=== PATIENT | male | born 1930 | race Caucasian/White ===

== ENCOUNTER 2021-04-09 15:49 | Inpatient (IN) | payer OTHER, MEDICARE ==
[~2021-04-09] VITALS: Ht 185.4 cm; Wt 75.7 kg
[~2021-04-09 15:49] MED LIST: AMLO-187 PO; HYDR-2145 PO; LISI20TA18 PO; METF500T16 PO; PRAV20TA2 PO
--- NOTE | 2021-04-09 16:28 | PHYS DOC ---
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 lung (MICHELL SINHA SUPERINTENDENT METERS) Smoking Status: Current Every Day Smoker Alcohol Use: Occasionally Drug Use: None (MICHELL SINHA SUPERINTENDENT METERS) General Adult EDM: Chief Complaint: MECHANICAL FALL HPI: HPI: Patient is a 89 year old male who presents with approximately 1900 last night he was out working in the yard and fell. He states he does not know why he fell but he did not lose consciousness or hit his head. He states that he was trying to grab things to get back up but was unable to. He states he was yelling for help for 3 hours but nobody hurt himself he just laid there. Patient was playing outside all night long and all day today. He has bilateral abrasions on his knees, and old pressure ulcer on lateral left ankle which she states has been there, bilateral small abrasions on his hands and fingers. He denies any blood thinners. Patient denies shortness of breath, chest pain, abdominal pain, nausea, vomiting, diarrhea, dizziness, headache, back pain, neck pain, fever, cough. He has a history of smoking, COPD, diabetes, hypertension, high cholesterol, rotator cuff surgery, carpal tunnel surgery. He has had both of his Covid vaccines. Denies any pain. (MICHELL SINHA SUPERINTENDENT METERS) Review of Systems: Review of Systems: Constitutional: Denies fever or chills. [] Eyes: Denies change in visual acuity. [] HENT: Denies nasal congestion or sore throat. [] Respiratory: Denies cough or shortness of breath. [] Cardiovascular: Denies chest pain or edema. [] GI: Denies abdominal pain, nausea, vomiting, bloody stools or diarrhea. [] : Denies dysuria. [] Musculoskeletal: Denies back pain or + left lateral ankle joint pain. + Fall [] Integument: Denies rash. + Abrasions [] Neurologic: Denies headache, focal weakness or sensory changes. [] Endocrine: Denies polyuria or polydipsia. [] Lymphatic: Denies swollen glands. [] Psychiatric: Denies depression or anxiety. [] (MICHELL SINHA APRN) Heart Score: C/O Chest Pain: No Risk Factors: Risk Factors: DM, Current or recent (<one month) smoker, HTN, HLP, family history of CAD, obesity. Risk Scores: Score 0 - 3: 2.5% MACE over next 6 weeks - Discharge Home Score 4 - 6: 20.3% MACE over next 6 weeks - Admit for Clinical Observation Score 7 - 10: 72.7% MACE over next 6 weeks - Early Invasive Strategies (MICHELL SINHA APRN) Allergies: Allergies: Allergies Coded Allergies Type Severity Reaction Last Updated Verified No Known Drug Allergies 04/09/21 No (MICHELL SINHA APRN) Physical Exam: PE: Constitutional: Well developed, well nourished, no acute distress, non-toxic oscar earance. [] HENT: Normocephalic, atraumatic, bilateral external ears normal, oropharynx moist, no oral exudates, nose normal. [] Eyes: PERRLA, EOMI, conjunctiva normal, no discharge. [] Neck: Normal range of motion, no tenderness, supple, no stridor. [] Cardiovascular:Heart rate regular rhythm, no murmur [] Lungs & Thorax: Bilateral breath sounds clear to auscultation [] Abdomen: Bowel sounds normal, soft, no tenderness, no masses, no pulsatile masses. [] Skin: Warm, dry, no erythema, no rash. Multiple abrasions. Bilateral knees, hands and fingers, elbows. [] Back: No tenderness, no CVA tenderness. [] Extremities: No tenderness, no cyanosis, no clubbing, ROM intact, bilateral lower 2+ edema. [] Neurologic: Alert and oriented X 3, normal motor function, normal sensory function, no focal deficits noted. [] Psychologic: Affect normal, judgement normal, mood normal. [] ([facility]) Current Patient Data: Vital Signs: Vital Signs Date Time Temp Pulse Resp B/P (MAP) Pulse Ox O2 Delivery O2 Flow Rate FiO2 04/09/21 16:07 80 16 127/82 98 Room Air ([facility]) EKG: EK read by Dr. Lazo as irregular A. fib rhythm but no STEMI. (MICHELL SINHA APRN) Radiology/Procedures: Radiology/Procedures: [] Impression: [facility] [address] [place] [address] IMAGING REPORT Signed PATIENT: NITA AVILA ACCOUNT: [id number] : 1930 LOCATION: ER AGE: 89 SEX: M EXAM STATUS: REG ER ORD. PHYSICIAN: MICHELL SINHA APRN REASON: FALL PROCEDURE: CT THORACIC SPINE WO CONTRAST Exam: CT head, cervical spine, thoracic spine and lumbar spine without contrast INDICATION: Fall TECHNIQUE: Sequential axial images through the head, cervical spine, thoracic spine and lumbar spine were obtained without the administration of IV contrast. Exposure: One or more of the following in the visualized dose reduction techniques were utilized for this examination: 1. Automated exposure control 2. Adjustment of the MA and/or KV according to patient size 3. Use of iterative of reconstructive technique Comparisons: None FINDINGS: Head: No focal parenchymal lesion or hemorrhage is identified. There is no midline shift or sulcal effacement. Patchy evidence in the periventricular white matter. No acute vascular territory infarction is identified. Stein-white distinction is preserved. The ventricular system is within normal limits without compression hydrocephalus. The basal cisterns are well maintained. Extra cranial soft tissue scalp contusion overlying the right posterior parietal region and right occipital region. The visualized portions of the paranasal sinuses and mastoid air cells are well-pneumatized. No acute fractures. Cervical spine: Vertebral body heights and alignment are well-maintained. Fracture to the cervical spine is not identified. Multilevel spondylotic change in cervical spine. There is degenerative disc disease greatest at C5-C6. Mild bilateral facet arthropathy is noted throughout cervical spine. Visualized paraspinal soft tissues are unremarkable. Thoracic spine: There is mild height loss at the superior endplate of T1 and T4. Fracture to the thoracic spine is not identified. No significant spondylotic change identified in the thoracic spine. Visualized paraspinal soft tissues are unremarkable. Lumbar spine: Vertebral body heights and alignment are well-maintained. Fracture to the lumbar spine is is not identified. There is diffuse severe osteopenia sacrum is not well evaluated Multilevel spondylotic change in cervical spine with degenerative disc disease greatest at L2-L3, L3-L4 and L5-S1 diffuse bilateral facet arthropathy is noted in the lumbar spine. Visualized paraspinal soft tissues are unremarkable. IMPRESSION: 1. Mild height loss involving superior endplate of T1 and T4 is age indeterminate. Correlate with point tenderness. 2. No acute intracranial abnormality. 3. Negative CT C-spine for acute traumatic injury. 4. Evaluation of the sacrum is markedly limited secondary to extensive severe osteopenia which limits the evaluation. Otherwise, no acute fracture identified at the lumbar spine. Electronically signed by: Haroon Rich MD (04/09/2021 5:16 PM) [facility] DICTATED and SIGNED BY: HAROON RICH MD DATE: 04/09/[id number] [id number] [place], [place] [id number] IMAGING REPORT Signed PATIENT: NITA AVILA ACCOUNT: [id number] : 1930 LOCATION: ER AGE: 89 SEX: M EXAM STATUS: REG ER ORD. PHYSICIAN: MICHELL SINHA APRN REASON: FALL PROCEDURE: PORTABLE CHEST 1V Single view chest dated 04/09/2021 5:14 PM: COMPARISON: None Clinical Indication: Pain after fall. Findings: Single upright portable exam of the chest was performed. Heart and mediastinal contours are stable. Lungs are hyperinflated but otherwise clear. No consolidation or pleural effusion. No pneumothorax. IMPRESSION: 1. No acute radiographic abnormality. 2. Hyperinflation suggesting COPD. Electronically signed by: Jean-Pierre Goldberg MD (04/09/2021 5:15 PM) [facility] DICTATED and SIGNED BY: JEAN-PIERRE GOLDBERG MD DATE: 04/09/21 [id number] [facility] [address] [place] [address] IMAGING REPORT Signed PATIENT: NITA AVILA ACCOUNT: [id number] : 1930 LOCATION: ER AGE: 89 SEX: M EXAM STATUS: REG ER ORD. PHYSICIAN: MICHELL SINHA APRN REASON: FALL PROCEDURE: ANKLE LEFT 3V Left ankle 3 views: Reason for examination: Fell. No acute fracture or dislocation is seen. The bone density is normal. No abnormal periosteal reaction is seen. Joint spaces are maintained. Some arteriosclerotic vascular calcification is present. IMPRESSION: No acute abnormality evident at the left ankle. Electronically signed by: Lexi Wood MD (04/09/2021 5:16 PM) [facility] DICTATED and SIGNED BY: LEXI WOOD MD DATE: 04/09/[id number] 0 [facility] [address] [place] [address] IMAGING REPORT Signed PATIENT: NITA AVILA ACCOUNT: [id number] : 1930 LOCATION: ER AGE: 89 SEX: M EXAM STATUS: REG ER ORD. PHYSICIAN: MICHELL SINHA APRN REASON: FALL PROCEDURE: HIP BILATERAL WITH PELVIS Single view pelvis and single view bilateral hip dated 04/09/2021. No comparison available. Clinical data indication: Pain after fall. FINDINGS: AP view pelvis shows normal bony alignment. No displaced fracture. The pelvic ring is intact. Mild degenerative change of the bilateral hip joint and bilateral SI joint with spondylotic changes of lower lumbar spine. Single view bilateral hips show normal bony alignment. No displaced fracture. No periostitis or bone destruction. IMPRESSION: 1. No evidence of displaced fracture. If there is persistent clinical concern for occult fracture or insufficiency fracture, MRI could better evaluate. 2. Mild degenerative changes. Electronically signed by: Jean-Pierre Goldberg MD (04/09/2021 5:16 PM) [facility] DICTATED and SIGNED BY: JEAN-PIERRE GOLDBERG MD DATE: 04/09/21 0 (MICHELL SINHA APRN) Course & Med Decision Making: Course & Med Decision Making Pertinent Labs and Imaging studies reviewed. (See chart for details) See HPI. Alert and oriented x4. Speaks in full clear sentences. He is in a c- collar. No focal bony spinal tenderness with palpation. No deformity or step- off to palpation. Lungs are clear in upper lobes and diminished in lower lobes bilaterally. No joint deformities. He is moving his extremities equally. F ollows all commands. Acting appropriately. Vital signs within normal limits. Bilateral lower extremity edema 2+. Patient does show A. fib on his EKG and he does not have a history of this released there is no history in the computer and not to his knowledge. Patient's niece is here who is his DPOA. She states that his house is a disaster he cannot keep it clean. She states that he tries to bathe himself when he cannot get out of the bathtub and takes least 30 minutes to try to get him up out of it. She states that he has a walker that he supposed to use because his left foot and ankle do not rotate and is very weak but he does not use it. She states he is very wobbly and unstable on his feet. She states she is trying to make the house as safe for him as possible but he will not get any correction health. She states the [place] has tried to give him home health but he refuses it. She states he refuses to go to a nursing facility. He does state that he is ready to " go home to [facility]". She states that he lives by himself. She states he is unable to take care of himself. She states she tries the best that she can to help him. Patient's has , his son has also , his brother has and his nephew has . [facility] has lost 20 pounds in the last month. Patient states that this also to nursing staff and myself and states that he is just not eating very well. He is gotten a liter of fluid in the hospital. He agrees to admission for observation purposes. CT and chest x-ray show no acute findings. Patient is stable. Admitted to hospitalist. [] (MICHELL SINHA SUPERINTENDENT METERS) Course & Med Decision Making I have participated in the care of this patient and I have reviewed and agree with all pertinent clinical information above including history, exam, and recommendations. Emma Lazo DO (EMMA LAZO DO) Yessi Disclaimer: Yessi Disclaimer: This electronic medical record was generated, in whole or in part, using a voice recognition dictation system. (MICHELL SINHA APRN) Departure Departure Impression: Primary Impression: Fall Qualified Codes: W19.XXXA - Unspecified fall, initial encounter Additional Impressions: Unable to ambulate New onset a-fib Disposition: ADMITTED INPATIENT Admitting Physician: EMIR (MICHELL SINHA APRN) Condition: STABLE Referrals: DANTE RAINEY MD (PCP) Scripts Insulin Lispro (Admelog) 100 Unit/1 Ml Vial 0 UNITS SQ TIDWMEALS for PER SS PROTOCOL for 30 Days, #2 EACH Prov: DANTE BAH MD 04/12/21 Docusate Sodium (DOCUSATE SODIUM) 100 Mg Capsule 100 MG PO PRN BID PRN for HARD STOOLS for 30 Days, #60 CAP Prov: DANTE BAH MD 04/12/21 Acetaminophen (ACETAMINOPHEN) 325 Mg Tablet 650 MG PO PRN Q4HRS PRN for TEMP OVER 100.4F OR MILD PAIN for 30 Days, #60 TAB Prov: DANTE BAH MD 04/12/21 Aspirin (ASPIRIN EC) 81 Mg Tablet. 81 MG PO DAILYWBK for HEART HEALTH for 30 Days, #30 TAB.SR Prov: DANTE BAH MD 04/12/21 MICHELL SINHA APRN Apr 09, 2021 16:28 EMMA LAZO DO Apr 15, 2021 06:59
[2021-04-09 16:29] LABS: BASO % 0 % (0-3); EOS % 0 % (0-3); HEMATOCRIT 35.1 % (39.0-53.0); HEMOGLOBIN 11.7 g/dL (13.0-17.5); LYMPH # 0.4 x10^3/uL (1.0-4.8); LYMPH % 4 % (24-48); MEAN CORPUSCULAR HEMOGLOBIN 33 pg (25-35); MEAN CORPUSCULAR HGB CONC 34 g/dL (31-37); MEAN CORPUSCULAR VOLUME 97 fL (79-100); MONO # 0.9 x10^3/uL (0.0-1.1); MONO % 8 % (0-9); NEUT # 10.7 x10^3/uL (1.8-7.7); NEUT % 89 % (31-73); PLATELET COUNT 187 x10^3/uL (140-400); RED BLOOD COUNT 3.62 x10^6/uL (4.30-5.70); RED CELL DISTRIBUTION WIDTH 12.4 % (11.5-14.5)
[2021-04-09] MEDS ORDERED: IV NORMAL SALINE 1000ML BAG 1,000 ML IV SCH (16:30)
[2021-04-09] MEDS ORDERED: DIPH,PERTUSS(ACELL),TET VAC/PF 0.5 ML SYRINGE. VAX IM ONE (16:30)
[2021-04-09 16:39] LABS: CALCIUM 9.1 mg/dL (8.5-10.1); CREATININE 0.9 mg/dL (0.7-1.3); GFR 79.5; POTASSIUM 4.2 mmol/L (3.5-5.1)
[2021-04-09 16:43] LABS: BILIRUBIN,URINE NEGATIVE (NEG); CLARITY,URINE CLEAR; COLOR,URINE YELLOW; NITRITE,URINE NEGATIVE (NEG); PROTEIN,URINE 30 mg/dL (NEG-TRACE); UROBILINOGEN,URINE 0.2 mg/dL (0.2 mg/dL)
[2021-04-09 16:54] LABS: ALBUMIN 3.4 g/dL (3.4-5.0); ALBUMIN/GLOBULIN RATIO 1.5 (1.0-1.7); MAGNESIUM 1.8 mg/dL (1.8-2.4); TOTAL BILIRUBIN 0.6 mg/dL (0.2-1.0); TOTAL PROTEIN 5.6 g/dL (6.4-8.2)
[2021-04-09 17:01] LABS: BACTERIA,URINE 0 /HPF (0-FEW); RBC,URINE 0 /HPF (0-2); WBC,URINE 0 /HPF (0-4)
--- NOTE | 2021-04-09 17:17 | RAD ---
Single view chest dated 04/09/2021 5:14 PM: COMPARISON: None Clinical Indication: Pain after fall. Findings: Single upright portable exam of the chest was performed. Heart and mediastinal contours are stable. L ungs are hyperinflated but otherwise clear. No consolidation or pleural effusion. No pneumothorax. IMPRESSION: 1. No acute radiographic abnormality. 2. Hyperinflation suggesting COPD. Electronically signed by: Jean-Pierre Goldberg MD (04/09/2021 5:15 PM) [facility]
--- NOTE | 2021-04-09 17:18 | RAD ---
Exam: CT head, cervical spine, thoracic spine and lumbar spine without contrast INDICATION: Fall TECHNIQUE: Sequential axial images through the head, cervical spine, thoracic spine and lumbar spine were obtained without the administration of IV contrast. Exposure: One or more of the following in the visualized dose reduction techniques were utilized for this examination: 1. Automated exposure control 2. Adjustment of the MA and/or KV according to patient size 3. Use of iterative of reconstructive technique Comparisons: None FINDINGS: Head: No focal parenchymal lesion or hemorrhage is identified. There is no midline shift or sulcal effaceme nt. Patchy evidence in the periventricular white matter. No acute vascular territory infarction is identi fied. Stein-white distinction is preserved. The ventricular system is within normal limits without compression hydrocephalus. The basal cisterns are well maintained. Extra cranial soft tissue scalp contusion overlying the right posterior parietal region and right occ ipital region. The visualized portions of the paranasal sinuses and mastoid air cells are well-pneuma tized. No acute fractures. Cervical spine: Vertebral body heights and alignment are well-maintained. Fracture to the cervical spine is not identified. Multilevel spondylotic change in cervical spine. There is degenerative disc disease greatest at C5-C6 . Mild bilateral facet arthropathy is noted throughout cervical spine. Visualized paraspinal soft tissues are unremarkable. Thoracic spine: There is mild height loss at the superior endplate of T1 and T4. Fracture to the thoracic spine is not identified. No significant spondylotic change identified in the thoracic spine. Visualized paraspinal soft tissues are unremarkable. Lumbar spine: Vertebral body heights and alignment are well-maintained. Fracture to the lumbar spine is is not identified. There is diffuse severe osteopenia sacrum is not w ell evaluated Multilevel spondylotic change in cervical spine with degenerative disc disease greatest at L2-L3, L3- L4 and L5-S1 diffuse bilateral facet arthropathy is noted in the lumbar spine. Visualized paraspinal soft tissues are unremarkable. IMPRESSION: 1. Mild height loss involving superior endplate of T1 and T4 is age indeterminate. Correlate with po int tenderness. 2. No acute intracranial abnormality. 3. Negative CT C-spine for acute traumatic injury. 4. Evaluation of the sacrum is markedly limited secondary to extensive severe osteopenia which limit s the evaluation. Otherwise, no acute fracture identified at the lumbar spine. Electronically signed by: Haroon Kaur MD (04/09/2021 5:16 PM) [facility]
--- NOTE | 2021-04-09 17:18 | RAD ---
Single view pelvis and single view bilateral hip dated 04/09/2021. No comparison available. Clinical data indication: Pain after fall. FINDINGS: AP view pelvis shows normal bony alignment. No displaced fracture. The pelvic ring is intact. Mild de generative change of the bilateral hip joint and bilateral SI joint with spondylotic changes of lower lumbar spine. Single view bilateral hips show normal bony alignment. No displaced fracture. No periostitis or bone destruction. IMPRESSION: 1. No evidence of displaced fracture. If there is persistent clinical concern for occult fracture or insufficiency fracture, MRI could better evaluate. 2. Mild degenerative changes. Electronically signed by: Jean-Pierre Goldberg MD (04/09/2021 5:16 PM) [facility]
--- NOTE | 2021-04-09 17:19 | RAD ---
Left ankle 3 views: Reason for examination: Fell. No acute fracture or dislocation is seen. The bone density is normal. No abnormal periosteal reaction is seen. Joint spaces are maintained. Some arteriosclerotic vascular calcification is present. IMPRESSION: No acute abnormality evident at the left ankle. Electronically signed by: Iris Calhoun MD (04/09/2021 5:16 PM) CAT
[2021-04-09 17:22] LABS: % BANDS 5 % (0-9); % LYMPHS 6 % (24-48); % MONOS 8 % (0-10); % SEGS 81 % (35-66)
[2021-04-09 17:24] LABS: PLT ESTIMATE ADEQUATE (ADEQUATE)
[2021-04-09] MEDS ORDERED: NEOMY/BACITR/POLYMYXIN OINT PACKET. TP ONE (17:45)
--- NOTE | 2021-04-09 20:39 | EKG ---
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
--- NOTE | 2021-04-09 21:22 | EKG ---
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
[2021-04-10] VITALS (7 sets, daily range): BP systolic 118–134; BP diastolic 56–69
--- NOTE | 2021-04-10 02:35 | NUR ---
Admit from ER Hold prior to midnight. Alert on arrival. Pleasant. Talkative. Reports he fell in his yard yesterday and was down in the yard for 24 hours. Noted to be very unsteady on his feet. 2 person assist to stand and use urinal. Knows he is at [facility] and his DPOA is his niece, Micki Marrero, . Oriented to room and call light. Reviewed POC to include Tele monitor and not to get out of bed without assist. Verbalized understanding. Resting in bed. Call light at hand. Bed alarm on.
--- NOTE | 2021-04-10 03:24 | EKG ---
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
--- NOTE | 2021-04-10 09:29 | PDOC1 ---
History and Physical Date of Admission Date of Admission DATE: 04/10/21 TIME: 09:29 Identification/Chief Complaint Chief Complaint FALL IN YARD, UNABLE TO SELF AMBULATE History of Present Illness History of Present Illness 89 year old male who presented to ER with fall working in the yard and fell. , was unable to arise on his own strength did not lose consciousness or hit his head. He was laying outside all night long and all day 04-09 He has bilateral abrasions on his knees, and old pressure ulcer on lateral left ankle/ bilateral small abrasions on his hands and fingers. denies shortness of breath, chest pain, abdominal pain, nausea, vomiting, diarrhea, dizziness, headache, back pain, neck pain, fever, cough. hx COPD, diabetes, hypertension, high cholesterol, rotator cuff surgery, carpal tunnel surgery./ trauma work up c/w Negative CT C-spine for acute traumatic injury.//Hyperinflation suggesting COPD.A. fib on EKG IS new he is very wobbly and unstable on his feet.chronically PLAN tele bed ECHO Cardiology consult PT/OT SNF BED NEEDED ADMIT Past Medical History Past Medical History Past Medical History Past Medical History: Diabetes-Type II, High Cholesterol, Hypertension Past Surgical History: Other Additional Past Surgical Histo: knee, rotator cuff, carpal tunn. lung Smoking Status: Current Every Day Smoker Alcohol Use: Occasionally Drug Use: None fhx copd Cardiovascular: Hyperlipidemia Pulmonary: No pertinent hx GI: Constipation Musculoskeletal: Osteoarthritis Family History Family History: Hypertension Social History Smoke: No ALCOHOL: none Drugs: None Current Problem List Problem List Problems Medical Problems: (1) Fall Status: Acute (2) New onset a-fib Status: Acute (3) Unable to ambulate Status: Acute Current Medications Current Medications Current Medications Sodium Chloride 1,000 ml @ 1,000 mls/hr Q1H IV Last administered on 04/09/21at 16:30; Start 04/09/21 at 16:30; Stop 04/09/21 at 17:29; Status DC Diphtheria/ Tetanus/Acell Pertussis (ADACEL TDap SYRINGE) 0.5 ml ONCE ONCE VAX IM Last administered on 04/09/21at 16:30; Start 04/09/21 at 16:30; Stop 04/09/21 at 16:31; Status DC Neomycin/ Polymyxin/ Bacitracin (Triple Antibiotic Ointment) 1 pkt 1X ONCE TP Last administered on 04/09/21at 17:45; Start 04/09/21 at 17:45; Stop 04/09/21 at 17:46; Status DC Active Scripts Active Reported No Known Medications Prior To Admisstion (Info) Each 1 Each DAILY Allergies Allergies: Coded Allergies: No Known Drug Allergies (Unverified , 04/09/21) ROS Review of System Musculoskeletal: Denies back pain or + left lateral ankle joint pain. + Fall [] Integument: Denies rash. + Abrasions [] Neurologic: Denies headache, focal weakness or sensory changes. [] Endocrine: Denies polyuria or polydipsia. [] Lymphatic: Denies swollen glands. [] Psychiatric: Denies depression or anxiety. [] General: YES: Fatigue; No: Chills, Night Sweats, Malaise, Appetite, Other PSYCHOLOGICAL ROS: No: Anxiety, Behavioral Disorder, Concentration difficultie, Decreased libido, Depression, Disorientation, Hallucinations, Hostility, Irritablity, Memory difficulties, Mood Swings, Obsessive thoughts, Physical abuse, Sexual abuse, Sleep disturbances, Suicidal ideation, Other Eyes: Yes Decreased vision; No Blurry vision, No Double vision, No Dry eyes, No Excessive tearing, No Eye Pain, No Itchy Eyes, No Loss of vision, No Photophobia, No Scotomata, No Uses contacts, No Uses glasses, No Other HEENT: No: Heacaches, Visual Changes, Hearing change, Nasal congestion, Nasal discharge, Oral lesions, Sinus pain, Sore Throat, Epistaxis, Sneezing, Snoring, Tinnitus, Vertigo, Vocal changes, Other ALLERGY AND IMMUNOLOGY: No: Hives, Insect Bite Sensitivity, Itchy/Watery Eyes, Nasal Congestion, Post Nasal Drip, Seasonal Allergies, Other Hematological and Lymphatic: No: Bleeding Problems, Blood Clots, Blood Transfusions, Brusing, Night Sweats, Pallor, Swollen Lymph Nodes, Other ENDOCRINE: No: Breast Changes, Galactorrhea, Hair Pattern Changes, Hot Flashes, Malaise/lethargy, Mood Swings, Palpitations, Polydipsia/polyuria, Skin Changes, Temperature Intolerance, Unexpected Weight Changes, Other Breast: No New/Changing Breast Lumps, No Nipple changes, No Nipple discharge, No Other Respiratory: No: Cough, Hemoptysis, Orthopnea, Pleuritic Pain, Shortness of breath, SOB with excertion, Sputum Changes, Stridor, Tachypnea, Wheezing, Other Cardiovascular: No Chest Pain, No Palpitations, No Orthopnea, No Paroxysmal Noc. Dyspnea, No Edema, No Lt Headedness, No Other Gastrointestinal: No Nausea, No Vomiting, No Abdominal Pain, No Diarrhea, No Constipation, No Melena, No Hematochezia, No Other Genitourinary: No Dysuria, No Frequency, No Incontinence, No Hematuria, No Retention, No Discharge, No Urgency, No Pain, No Flank Pain, No Other, No , No , No , No , No , No , No Musculoskeletal: Yes Gait Disturbance, Yes Joint Stiffness, Yes Muscular Weakness; No Joint Pain, No Joint Swelling, No Muscle Pain, No Pain In:, No Swelling In:, No Other Neurological: Yes Gait Disturbance; No Behavorial Changes, No Bowel/Bladder ControlChng, No Confusion, No Dizzine ss, No Headaches, No Impaired Coord/balance, No Memory Loss, No Numbness/Tingling, No Seizures, No Speech Problems, No Tremors, No Visual Changes, No Weakness, No Other Skin: Yes Dry Skin; No Eczema, No Hair Changes, No Lumps, No Mole Changes, No Mottling, No Nail Changes, No Pruritus, No Rash, No Skin Lesion Changes, No Other, No Acne Physical Exam Physical Exam Constitutional: Well developed, well nourished, no acute distress, non-toxic appearance. [] HENT: Normocephalic, atraumatic, bilateral external ears normal, oropharynx moist, no oral exudates, nose normal. [] Eyes: PERRLA, EOMI, conjunctiva normal, no discharge. [] Neck: Normal range of motion, no tenderness, supple, no stridor. [] Cardiovascular:Heart rate regular rhythm, no murmur [] Lungs & Thorax: Bilateral breath sounds clear to auscultation [] Abdomen: Bowel sounds normal, soft, no tenderness, no masses, no pulsatile masses. [] Skin: Warm, dry, no erythema, no rash. Multiple abrasions. Bilateral knees, hands and fingers, elbows. [] Back: No tenderness, no CVA tenderness. [] Extremities: No tenderness, no cyanosis, no clubbing, ROM intact, bilateral lower 2+ edema. [] Neurologic: Alert and oriented X 3, normal sensory function, no focal deficits noted. [] Psychologic: Affect normal, judgment normal, mood normal. [] General: Alert, Oriented X3, Cooperative, No acute distress Heart: no gallops, no jug vein distention Breasts: Not examined Abdomen: Normal bowel sounds, Soft Rectal Exam: not examined Extremities: No cyanosis Neuro: Normal speech, Cranial nerves 3-12 NL Psych/Mental Status: Mental status NL Vitals Vitals Vital Signs Date Time Temp Pulse Resp B/P (MAP) Pulse Ox O2 Delivery O2 Flow Rate FiO2 04/10/21 06:18 98.0 58 18 127/56 (79) 98 Room Air 98.0 Labs Labs Laboratory Tests Test 04/09/21 16:15 04/09/21 16:35 04/09/21 20:00 04/09/21 22:10 White Blood Count 12.0 x10^3/uL (4.0-11.0) Red Blood Count 3.62 x10^6/uL (4.30-5.70) Hemoglobin 11.7 g/dL (13.0-17.5) Hematocrit 35.1 % (39.0-53.0) Mean Corpuscular Volume 97 fL (79-100) Mean Corpuscular Hemoglobin 33 pg (25-35) Mean Corpuscular Hemoglobin Concent 34 g/dL (31-37) Red Cell Distribution Width 12.4 % (11.5-14.5) Platelet Count 187 x10^3/uL (140-400) Neutrophils (%) (Auto) 89 % (31-73) Lymphocytes (%) (Auto) 4 % (24-48) Monocytes (%) (Auto) 8 % (0-9) Eosinophils (%) (Auto) 0 % (0-3) Basophils (%) (Auto) 0 % (0-3) Neutrophils # (Auto) 10.7 x10^3/uL (1.8-7.7) Lymphocytes # (Auto) 0.4 x10^3/uL (1.0-4.8) Monocytes # (Auto) 0.9 x10^3/uL (0.0-1.1) Eosinophils # (Auto) 0.0 x10^3/uL (0.0-0.7) Basophils # (Auto) 0.0 x10^3/uL (0.0-0.2) Segmented Neutrophils % 81 % (35-66) Band Neutrophils % 5 % (0-9) Lymphocytes % 6 % (24-48) Monocytes % 8 % (0-10) Platelet Estimate Adequate (ADEQUATE) Sodium Level 141 mmol/L (136-145) Potassium Level 4.2 mmol/L (3.5-5.1) Chloride Level 106 mmol/L (98-107) Carbon Dioxide Level 24 mmol/L (21-32) Anion Gap 11 (6-14) Blood Urea Nitrogen 24 mg/dL (8-26) Creatinine 0.9 mg/dL (0.7-1.3) Estimated GFR (Cockcroft-Gault) 79.5 BUN/Creatinine Ratio 27 (6-20) Glucose Level 278 mg/dL (70-99) Calcium Level 9.1 mg/dL (8.5-10.1) Magnesium Level 1.8 mg/dL (1.8-2.4) Total Bilirubin 0.6 mg/dL (0.2-1.0) Aspartate Amino Transf (AST/SGOT) 26 U/L (15-37) Alanine Aminotransferase (ALT/SGPT) 48 U/L (16-63) Alkaline Phosphatase 90 U/L (46-116) Creatine Kinase 1453 U/L (39-308) Troponin I Quantitative 0.045 ng/mL (0.000-0.055) 0.032 ng/mL (0.000-0.055) 0.029 ng/mL (0.000-0.055) GS-Bpn-O-Type Natriuretic Peptide 2282 pg/mL (0-449) Total Protein 5.6 g/dL (6.4-8.2) Albumin 3.4 g/dL (3.4-5.0) Albumin/Globulin Ratio 1.5 (1.0-1.7) Lipase 55 U/L (73-393) Urine Collection Type Unknown Urine Color Yellow Urine Clarity Clear Urine pH 5.0 (<5.0-8.0) Urine Specific Liberty >=1.030 (1.000-1.030) Urine Protein 30 mg/dL (NEG-TRACE) Urine Glucose (UA) >=1000 mg/dL (NEG) Urine Ketones (Stick) Trace mg/dL (NEG) Urine Blood Small (NEG) Urine Nitrite Negative (NEG) Urine Bilirubin Negative (NEG) Urine Urobilinogen Dipstick 0.2 mg/dL (0.2 mg/dL) Urine Leukocyte Esterase Negative (NEG) Urine RBC 0 /HPF (0-2) Urine WBC 0 /HPF (0-4) Urine Bacteria 0 /HPF (0-FEW) Test 04/10/21 06:50 SARS-CoV-2 Antigen (Rapid) Negative (NEGATIVE) Laboratory Tests Test 04/09/21 16:15 04/09/21 16:35 04/09/21 20:00 04/09/21 22:10 White Blood Count 12.0 x10^3/uL (4.0-11.0) Red Blood Count 3.62 x10^6/uL (4.30-5.70) Hemoglobin 11.7 g/dL (13.0-17.5) Hematocrit 35.1 % (39.0-53.0) Mean Corpuscular Volume 97 fL (79-100) Mean Corpuscular Hemoglobin 33 pg (25-35) Mean Corpuscular Hemoglobin Concent 34 g/dL (31-37) Red Cell Distribution Width 12.4 % (11.5-14.5) Platelet Count 187 x10^3/uL (140-400) Neutrophils (%) (Auto) 89 % (31-73) Lymphocytes (%) (Auto) 4 % (24-48) Monocytes (%) (Auto) 8 % (0-9) Eosinophils (%) (Auto) 0 % (0-3) Basophils (%) (Auto) 0 % (0-3) Neutrophils # (Auto) 10.7 x10^3/uL (1.8-7.7) Lymphocytes # (Auto) 0.4 x10^3/uL (1.0-4.8) Monocytes # (Auto) 0.9 x10^3/uL (0.0-1.1) Eosinophils # (Auto) 0.0 x10^3/uL (0.0-0.7) Basophils # (Auto) 0.0 x10^3/uL (0.0-0.2) Segmented Neutrophils % 81 % (35-66) Band Neutrophils % 5 % (0-9) Lymphocytes % 6 % (24-48) Monocytes % 8 % (0-10) Platelet Estimate Adequate (ADEQUATE) Sodium Level 141 mmol/L (136-145) Potassium Level 4.2 mmol/L (3.5-5.1) Chloride Level 106 mmol/L (98-107) Carbon Dioxide Level 24 mmol/L (21-32) Anion Gap 11 (6-14) Blood Urea Nitrogen 24 mg/dL (8-26) Creatinine 0.9 mg/dL (0.7-1.3) Estimated GFR (Cockcroft-Gault) 79.5 BUN/Creatinine Ratio 27 (6-20) Glucose Level 278 mg/dL (70-99) Calcium Level 9.1 mg/dL (8.5-10.1) Magnesium Level 1.8 mg/dL (1.8-2.4) Total Bilirubin 0.6 mg/dL (0.2-1.0) Aspartate Amino Transf (AST/SGOT) 26 U/L (15-37) Alanine Aminotransferase (ALT/SGPT) 48 U/L (16-63) Alkaline Phosphatase 90 U/L (46-116) Creatine Kinase 1453 U/L (39-308) Troponin I Quantitative 0.045 ng/mL (0.000-0.055) 0.032 ng/mL (0.000-0.055) 0.029 ng/mL (0.000-0.055) MF-Dan-K-Type Natriuretic Peptide 2282 pg/mL (0-449) Total Protein 5.6 g/dL (6.4-8.2) Albumin 3.4 g/dL (3.4-5.0) Albumin/Globulin Ratio 1.5 (1.0-1.7) Lipase 55 U/L (73-393) Urine Collection Type Unknown Urine Color Yellow Urine Clarity Clear Urine pH 5.0 (<5.0-8.0) Urine Specific Liberty >=1.030 (1.000-1.030) Urine Protein 30 mg/dL (NEG-TRACE) Urine Glucose (UA) >=1000 mg/dL (NEG) Urine Ketones (Stick) Trace mg/dL (NEG) Urine Blood Small (NEG) Urine Nitrite Negative (NEG) Urine Bilirubin Negative (NEG) Urine Urobilinogen Dipstick 0.2 mg/dL (0.2 mg/dL) Urine Leukocyte Esterase Negative (NEG) Urine RBC 0 /HPF (0-2) Urine WBC 0 /HPF (0-4) Urine Bacteria 0 /HPF (0-FEW) Test 04/10/21 06:50 SARS-CoV-2 Antigen (Rapid) Negative (NEGATIVE) Images Images Head: No focal parenchymal lesion or hemorrhage is identified. There is no midline shift or sulcal effacement. Patchy evidence in the periventricular white matter. No acute vascular territory infarction is identified. Stein-white distinction is preserved. The ventricular system is within normal limits without compression hydrocephalus. The basal cisterns are well maintained. Extra cranial soft tissue scalp contusion overlying the right posterior parietal region and right occipital region. The visualized portions of the paranasal sinuses and mastoid air cells are well-pneumatized. No acute fractures. Cervical spine: Vertebral body heights and alignment are well-maintained. Fracture to the cervical spine is not identified. Multilevel spondylotic change in cervical spine. There is degenerative disc disease greatest at C5-C6. Mild bilateral facet arthropathy is noted throughout cervical spine. Visualized paraspinal soft tissues are unremarkable. Thoracic spine: There is mild height loss at the superior endplate of T1 and T4. Fracture to the thoracic spine is not identified. No significant spondylotic change identified in the thoracic spine. Visualized paraspinal soft tissues are unremarkable. Lumbar spine: Vertebral body heights and alignment are well-maintained. Fracture to the lumbar spine is is not identified. There is diffuse severe osteopenia sacrum is not well evaluated Multilevel spondylotic change in cervical spine with degenerative disc disease greatest at L2-L3, L3-L4 and L5-S1 diffuse bilateral facet arthropathy is noted in the lumbar spine. Visualized paraspinal soft tissues are unremarkable. IMPRESSION: 1. Mild height loss involving superior endplate of T1 and T4 is age indeterminate. Correlate with point tenderness. 2. No acute intracranial abnormality. 3. Negative CT C-spine for acute traumatic injury. 4. Evaluation of the sacrum is markedly limited secondary to extensive severe osteopenia which limits the evaluation. Otherwise, no acute fracture identified at the lumbar spine. Electronically signed by: Jeannette Rich MD (04/09/2021 5:16 PM) [facility] DICTATED and SIGNED BY: JEANNETTE RICH MD DATE: 04/09/21 [id number] 0 VTE Prophylaxis Ordered VTE Prophylaxis Devices: No VTE Pharmacological Prophylaxi: Yes Assessment/Plan Assessment/Plan Impression: Fall Gait instability, inability to ambulate safely New onset a-fib PLAN ADMITTED======== tele bed ECHO Cardiology consult PT/OT SNF BED NEEDED NEUROCHECKS Q 4 HRS Justifications for Admission Other Justification DANTE BAH MD Apr 10, 2021 09:29
[2021-04-10] MEDS ORDERED: DOCUSATE SODIUM 100 MG CAPSULE. PO PRN (11:00)
[2021-04-10] MEDS ORDERED: 0.9 % SODIUM CHLORIDE 10 ML DISP.SYRIN. IV PRN (11:00)
[2021-04-10] MEDS ORDERED: SODIUM PHOSPHATES 19/7GM 133 ML ENEMA. PR PRN (11:00)
[2021-04-10] MEDS ORDERED: MAG HYDROX/ALUMINUM HYD/SIMETH 30 ML ORAL.SUSP PO PRN (11:00)
[2021-04-10] MEDS ORDERED: ALBUTEROL SULFATE 2.5 MG/3 ML NEBU. NEB PRN (11:00)
[2021-04-10] MEDS ORDERED: ONDANSETRON PF 4 MG/2 ML VIAL. IV PRN (11:00)
[2021-04-10] MEDS ORDERED: guaiFENesin ORAL 200 MG/10 ML LIQUID. PO PRN (11:00)
[2021-04-10] MEDS ORDERED: ACETAMINOPHEN 325 MG TABLET. PO PRN (11:00)
--- NOTE | 2021-04-10 11:27 | NUR ---
SS following for discharge planning. SS reviewed pt chart and discussed with pt RN. Pt is from home and is currently on room air. COVID19 negative. Pt has DPOA, niece, Micki Marrero, . Cardiology and wound care consulted. PT/OT ordered. SS will continue to follow for discharge planning.
[2021-04-10] MEDS: IV NORMAL SALINE 1000ML BAG 1,000 ML IV SCH (12:48)
[2021-04-10] MEDS: ENOXAPARIN 40 MG/0.4 ML SYRINGE. SQ SCH (12:49)
[2021-04-10] MEDS ORDERED: DEXTROSE 50% 25 GM / 50ML DISP.SYRIN. IV PRN (14:15)
--- NOTE | 2021-04-10 14:26 | PDOC2 ---
RIVER URBINA SYED 04/10/21 1425: CARDIAC CONSULT DATE OF CONSULT Date of Consult DATE: 04/10/21 TIME: 14:20 REASON FOR CONSULT Reason for Consult: AFIB REFERRING PHYSICIAN Referring Physician: Vivian Marie APRN SOURCE Source: Chart review, Patient HISTORY OF PRESENT ILLNESS HISTORY OF PRESENT ILLNESS This is an 89 yo male who presented secondary to fall. Was out working in the yard and fell the 2 days ago. Reports he lost his balance and fell. Did not hit his head or lose consciousness. Unfortunately, he lives at home alone and no one was able to hear him yelling for help. He was unable to get up and laid down on the ground overnight and the following day until someone found him the following afternoon. EKG with concerns for AFIB, which prompted this consult. Initial EKG reads as AFIB, but further review shows SR with PAC. Repeat EKG x2 also shows SR. He denies any chest pain, palpitations, dizziness, diaphoresis, or nausea/vomiting. Normally followed at the [facility]. PAST MEDICAL HISTORY Cardiovascular: HTN, Hyperlipidemia Pulmonary: COPD Endocrine: Diabetes PAST SURGICAL HISTORY Past Surgical History: Other (left knee and right rotator cuff surgery ) FAMILY HISTORY Family History: Hypertension SOCIAL HISTORY Smoke: No ALCOHOL: rare Drugs: None Lives: Alone CURRENT MEDICATIONS CURRENT MEDICATIONS Current Medications Medications (Trade) Dose Ordered Sig/Kenzie Route PRN Reason Start Time Stop Time Status Last Admin Dose Admin Sodium Chloride 1,000 ml @ 1,000 mls/hr Q1H IV 04/09/21 16:30 04/09/21 17:29 DC 04/09/21 16:30 Diphtheria/ Tetanus/Acell Pertussis (ADACEL TDap SYRINGE) 0.5 ml ONCE ONCE VAX IM 04/09/21 16:30 04/09/21 16:31 DC 04/09/21 16:30 Neomycin/ Polymyxin/ Bacitracin (Triple Antibiotic Ointment) 1 pkt 1X ONCE TP 04/09/21 17:45 04/09/21 17:46 DC 04/09/21 17:45 Sodium Chloride 1,000 ml @ 65 mls/hr [id number] IV 04/10/21 11:00 04/10/21 12:48 Enoxaparin Sodium (Lovenox 40mg Syringe) 40 mg Q24H SQ 04/10/21 11:00 04/10/21 12:49 ALLERGIES ALLERGIES: Coded Allergies: No Known Drug Allergies (Unverified , 04/09/21) ROS Review of System 14 point ROS conducted with pertinent positives noted above in hPI PHYSICAL EXAM General: Alert, Oriented X3, Cooperative, No acute distress HEENT: Atraumatic Lungs: Clear to auscultation Heart: Regular rate Abdomen: Soft, No tenderness Extremities: No edema Skin: No significant lesion Neuro: Normal speech, Sensation intact Psych/Mental Status: Mental status NL, Mood NL MUSCULOSKELETAL: Osteoarthritic changes both hands VITALS/I&O VITALS/I&O: Vital Signs Date Time Temp Pulse Resp B/P (MAP) Pulse Ox O2 Delivery O2 Flow Rate FiO2 04/10/21 11:00 86 18 129/60 (83) 04/10/21 06:18 98.0 98 Room Air 98.0 I & O 04/09/21 04/09/21 04/10/21 15:00 23:00 07:00 Intake Total 100 ml Output Total 400 ml 375 ml Balance -400 ml -275 ml LABS Lab: Laboratory Tests Test 04/09/21 16:15 04/09/21 16:35 04/09/21 20:00 04/09/21 22:10 White Blood Count 12.0 x10^3/uL (4.0-11.0) H Red Blood Count 3.62 x10^6/uL (4.30-5.70) L Hemoglobin 11.7 g/dL (13.0-17.5) L Hematocrit 35.1 % (39.0-53.0) L Mean Corpuscular Volume 97 fL (79-100) Mean Corpuscular Hemoglobin 33 pg (25-35) Mean Corpuscular Hemoglobin Concent 34 g/dL (31-37) Red Cell Distribution Width 12.4 % (11.5-14.5) Platelet Count 187 x10^3/uL (140-400) Neutrophils (%) (Auto) 89 % (31-73) H Lymphocytes (%) (Auto) 4 % (24-48) L Monocytes (%) (Auto) 8 % (0-9) Eosinophils (%) (Auto) 0 % (0-3) Basophils (%) (Auto) 0 % (0-3) Neutrophils # (Auto) 10.7 x10^3/uL (1.8-7.7) H Lymphocytes # (Auto) 0.4 x10^3/uL (1.0-4.8) L Monocytes # (Auto) 0.9 x10^3/uL (0.0-1.1) Eosinophils # (Auto) 0.0 x10^3/uL (0.0-0.7) Basophils # (Auto) 0.0 x10^3/uL (0.0-0.2) Segmented Neutrophils % 81 % (35-66) H Band Neutrophils % 5 % (0-9) Lymphocytes % 6 % (24-48) L Monocytes % 8 % (0-10) Platelet Estimate Adequate (ADEQUATE) Sodium Level 141 mmol/L (136-145) Potassium Level 4.2 mmol/L (3.5-5.1) Chloride Level 106 mmol/L (98-107) Carbon Dioxide Level 24 mmol/L (21-32) Anion Gap 11 (6-14) Blood Urea Nitrogen 24 mg/dL (8-26) Creatinine 0.9 mg/dL (0.7-1.3) Estimated GFR (Cockcroft-Gault) 79.5 BUN/Creatinine Ratio 27 (6-20) H Glucose Level 278 mg/dL (70-99) H Calcium Level 9.1 mg/dL (8.5-10.1) Magnesium Level 1.8 mg/dL (1.8-2.4) Total Bilirubin 0.6 mg/dL (0.2-1.0) Aspartate Amino Transferase (AST) 26 U/L (15-37) Alanine Aminotransferase (ALT) 48 U/L (16-63) Alkaline Phosphatase 90 U/L (46-116) Creatine Kinase 1453 U/L (39-308) H Troponin I Quantitative 0.045 ng/mL (0.000-0.055) 0.032 ng/mL (0.000-0.055) 0.029 ng/mL (0.000-0.055) ML-Oxq-X-Type Natriuretic Peptide 2282 pg/mL (0-449) H Total Protein 5.6 g/dL (6.4-8.2) L Albumin 3.4 g/dL (3.4-5.0) Albumin/Globulin Ratio 1.5 (1.0-1.7) Lipase 55 U/L (73-393) L Urine Collection Type Unknown Urine Color Yellow Urine Clarity Clear Urine pH 5.0 (<5.0-8.0) Urine Specific Ferdinand >=1.030 (1.000-1.030) Urine Protein 30 mg/dL (NEG-TRACE) Urine Glucose (UA) >=1000 mg/dL (NEG) Urine Ketones (Stick) Trace mg/dL (NEG) Urine Blood Small (NEG) Urine Nitrite Negative (NEG) Urine Bilirubin Negative (NEG) Urine Urobilinogen Dipstick 0.2 mg/dL (0.2 mg/dL) Urine Leukocyte Esterase Negative (NEG) Urine RBC 0 /HPF (0-2) Urine WBC 0 /HPF (0-4) Urine Bacteria 0 /HPF (0-FEW) Test 04/10/21 06:50 SARS-CoV-2 RNA (FRANCOIS) Negative (Negative) SARS-CoV-2 Antigen (Rapid) Negative (NEGATIVE) Laboratory Tests 04/09/21 16:15 Laboratory Tests 04/09/21 16:15 ASSESSMENT/PLAN ASSESSMENT/PLAN 1. Mechanical fall; no acute fracture identified. 2. Arrhythmia; concerns for AFIB. Review of EKG's (3) show SR with PAC. No AFIB noted 3. Rhabdomyolysis 4. Diabetes, II Recommendations Ongoing IVFs Monitor CK Echo ordered [facility] LI JAIME MD 04/11/21 1100: CARDIAC CONSULT ASSESSMENT/PLAN ASSESSMENT/PLAN Late entry for 04/10/21 The patient was seen and interviewed as well as examined at the bedside. The chart was reviewed. The case was discussed. Agree with the plan of care. RIVER URBINA APRN Apr 10, 2021 14:25 LI JAIME MD Apr 11, 2021 11:00
--- NOTE | 2021-04-10 15:15 | NUR ---
Wound/Ostomy Care Wound Type/Assessment: Patient seen per wound care consult. See wound assessment. Patient has multiple open skin tears to the right upper and lower arm, patient has a stage II PU to the coccyx, and a left lateral DFU. All wounds cleansed, assessed, and measured. Patient is very pleasant and able to assist with turning and assessment. Treatment Recommendations/Plan: Recommendations for xeroform gauze, ABD pads, and wrap with kerlix; to the left lateral foot paint with Betadine and cover with foam dressing; lastly to the coccyx apply xeroform gauze and cover with foam dressing. Change on Thursday and Thursday Education provided: Patient educated on dressing changes and PU treatment and management. Offloading surface/device: A wheelchair cushion ordered for this patient. Recommended Referrals/Tests: N/ A Discharge Recommendations for dressings: Dressing change instructions left in room. No other wounds noted. PT at bedside now to work with patient. Wound care will follow up on 04/17/21.
[2021-04-10] MEDS ORDERED: AMLO-187 PO (17:17)
[2021-04-10] MEDS ORDERED: ALOG25TA PO (17:17)
[2021-04-10] MEDS ORDERED: LATA7.5D OU (17:17)
[2021-04-10] MEDS ORDERED: METF10007 PO (17:17)
[2021-04-10] MEDS ORDERED: LISI-517 PO (17:17)
[2021-04-10] MEDS ORDERED: TRIA1CAP3 PO (17:17)
[2021-04-10] MEDS ORDERED: PRAV10TA2 PO (17:17)
[2021-04-10] MEDS ORDERED: CHOL10004 PO (17:17)
[2021-04-10] MEDS ORDERED: GLIP5TAB10 PO (17:17)
[2021-04-10] MEDS: metFORMIN 500 MG TABLET PO SCH (18:55)
[2021-04-10] MEDS: glipiZIDE 5 MG TABLET PO SCH (18:56)
[2021-04-10] MEDS: LATANOPROST 0.005% OPHTH SOLUTION 2.5ML BOTTLE. OU SCH (20:17)
[2021-04-10] MEDS: INSULIN LISPRO 300 UNITS/3 ML VIAL. SQ SCH (20:19)
[2021-04-11] MEDS: IV NORMAL SALINE 1000ML BAG 1,000 ML IV SCH ×2 (02:50→19:56)
[2021-04-11 03:13] VITALS: BP 123/60
[2021-04-11 05:35] LABS: BASO % 0 % (0-3); EOS % 0 % (0-3); HEMATOCRIT 29.8 % (39.0-53.0); HEMOGLOBIN 10.2 g/dL (13.0-17.5); LYMPH # 0.8 x10^3/uL (1.0-4.8); LYMPH % 11 % (24-48); MEAN CORPUSCULAR HEMOGLOBIN 33 pg (25-35); MEAN CORPUSCULAR HGB CONC 34 g/dL (31-37); MEAN CORPUSCULAR VOLUME 96 fL (79-100); MONO # 0.6 x10^3/uL (0.0-1.1); MONO % 8 % (0-9); NEUT # 5.6 x10^3/uL (1.8-7.7); NEUT % 80 % (31-73); PLATELET COUNT 159 x10^3/uL (140-400); RED BLOOD COUNT 3.11 x10^6/uL (4.30-5.70); WHITE BLOOD COUNT 7.1 x10^3/uL (4.0-11.0)
[2021-04-11 06:09] LABS: ALBUMIN 2.7 g/dL (3.4-5.0); ALBUMIN/GLOBULIN RATIO 1.2 (1.0-1.7); CALCIUM 8.5 mg/dL (8.5-10.1); CREATININE 0.8 mg/dL (0.7-1.3); POTASSIUM 3.8 mmol/L (3.5-5.1); TOTAL BILIRUBIN 0.3 mg/dL (0.2-1.0)
[2021-04-11 07:00] VITALS: BP 122/62
[2021-04-11] MEDS: INSULIN LISPRO 300 UNITS/3 ML VIAL. SQ SCH ×3 (08:00→18:27)
[2021-04-11] MEDS ORDERED: NON FORMULARY ITEM (Info (No Known Medications Prior To Admisstion) 1 EACH) MC SCH (09:00)
[2021-04-11] MEDS: CHOLECALCIFEROL (VITAMIN D3) 1,000 UNIT TABLET PO SCH (09:45)
[2021-04-11] MEDS: glipiZIDE 5 MG TABLET PO SCH ×2 (09:45→18:21)
[2021-04-11] MEDS: LINAGLIPTIN 5 MG TABLET PO SCH (09:45)
[2021-04-11] MEDS: metFORMIN 500 MG TABLET PO SCH ×2 (09:45→18:21)
[2021-04-11] MEDS: TRIAMTERENE/HCTZ 37.5/25MG TABLET. PO SCH (09:45)
[2021-04-11] MEDS: ATORVASTATIN CALCIUM 10 MG TABLET. PO SCH (09:46)
[2021-04-11] MEDS: LISINOPRIL 5 MG TABLET. PO SCH (09:47)
[2021-04-11 11:00] VITALS: BP 134/63
[2021-04-11] MEDS: ENOXAPARIN 40 MG/0.4 ML SYRINGE. SQ SCH (12:26)
--- NOTE | 2021-04-11 13:29 | PDOC ---
PROGRESS NOTES Date of Service: DATE: 04/11/21 TIME: 13:29 Chief Complaint Chief Complaint VTE Prophylaxis Ordered VTE Prophylaxis Devices: No VTE Pharmacological Prophylaxi: Yes Assessment/Plan Assessment/Plan Impression: Fall Gait instability, inability to ambulate safely Arrhythmia; concerns for AFIB. Review of EKG's (3) show SR with PAC. No AFIB noted Rhabdomyolysis PLAN ADMITTED======== tele bed ECHO Cardiology consult PT/OT SNF BED NEEDED NEUROCHECKS Q 4 HRS Justifications for Admission Other Justification History of Present Illness History of Present Illness Identification/Chief Complaint Chief Complaint FALL IN YARD, UNABLE TO SELF AMBULATE History of Present Illness History of Present Illness 89 year old male who presented to ER with fall working in the yard and fell. , was unable to arise on his own strength did not lose consciousness or hit his head. He was laying outside all night long and all day 8-17 He has bilateral abrasions on his knees, and old pressure ulcer on lateral left ankle/ bilateral small abrasions on his hands and fingers. denies shortness of breath, chest pain, abdominal pain, nausea, vomiting, diarrhea, dizziness, headache, back pain, neck pain, fever, cough. hx COPD, diabetes, hypertension, high cholesterol, rotator cuff surgery, carpal tunnel surgery./ trauma work up c/w Negative CT C-spine for acute traumatic injury.//Hyperinflation suggesting COPD.A. fib on EKG IS new he is very wobbly and unstable on his feet.chronically PLAN tele bed ECHO Cardiology consult PT/OT SNF BED NEEDED ADMIT Past Medical History Past Medical History Past Medical History Past Medical History: Diabetes-Type II, High Cholesterol, Hypertension Past Surgical History: Other Additional Past Surgical Histo: knee, rotator cuff, carpal tunn. lung Smoking Status: Current Every Day Smoker Alcohol Use: Occasionally Drug Use: None fhx copd Cardiovascular: Hyperlipidemia Pulmonary: No pertinent hx GI: Constipation Musculoskeletal: Osteoarthritis Family History Family History: Hypertension Social History Smoke: No ALCOHOL: none Drugs: None Current Problem List Problem List Problems Medical Problems: (1) Fall Status: Acute (2) New onset a-fib Status: Acute (3) Unable to ambulate Status: Acute Current Medications Current Medications Current Medications Sodium Chloride 1,000 ml @ 1,000 mls/hr Q1H IV Last administered on 04/09/21at 16:30; Start 04/09/21 at 16:30; Stop 04/09/21 at 17:29; Status DC Diphtheria/ Tetanus/Acell Pertussis (ADACEL TDap SYRINGE) 0.5 ml ONCE ONCE VAX IM Last administered on 04/09/21at 16:30; Start 04/09/21 at 16:30; Stop 04/09/21 at 16:31; Status DC Neomycin/ Polymyxin/ Bacitracin (Triple Antibiotic Ointment) 1 pkt 1X ONCE TP Last administered on 04/09/21at 17:45; Start 04/09/21 at 17:45; Stop 04/09/21 at 17:46; Status DC Active Scripts Active Reported No Known Medications Prior To Admisstion (Info) Each 1 Each DAILY Allergies Allergies: Coded Allergies: No Known Drug Allergies (Unverified , 04/09/21) ROS Review of System Musculoskeletal: Denies back pain or + left lateral ankle joint pain. + Fall [] Integument: Denies rash. + Abrasions [] Neurologic: Denies headache, focal weakness or sensory changes. [] Endocrine: Denies polyuria or polydipsia. [] Lymphatic: Denies swollen glands. [] Psychiatric: Denies depression or anxiety. [] General: YES: Fatigue; No: Chills, Night Sweats, Malaise, Appetite, Other PSYCHOLOGICAL ROS: No: Anxiety, Behavioral Disorder, Concentration difficultie, Decreased libido, Depression, Disorientation, Hallucinations, Hostility, Irritablity, Memory difficulties, Mood Swings, Obsessive thoughts, Physical abuse, Sexual abuse, Sleep disturbances, Suicidal ideation, Other Eyes: Yes Decreased vision; No Blurry vision, No Double vision, No Dry eyes, No Excessive tearing, No Eye Pain, No Itchy Eyes, No Loss of vision, No Photophobia, No Scotomata, No Uses contacts, No Uses glasses, No Other HEENT: No: Heacaches, Visual Changes, Hearing change, Nasal congestion, Nasal discharge, Oral lesions, Sinus pain, Sore Throat, Epistaxis, Sneezing, Snoring, Tinnitus, Vertigo, Vocal changes, Other ALLERGY AND IMMUNOLOGY: No: Hives, Insect Bite Sensitivity, Itchy/Watery Eyes, Nasal Congestion, Post Nasal Drip, Seasonal Allergies, Other Hematological and Lymphatic: No: Bleeding Problems, Blood Clots, Blood Transfusions, Brusing, Night Sweats, Pallor, Swollen Lymph Nodes, Other ENDOCRINE: No: Breast Changes, Galactorrhea, Hair Pattern Changes, Hot Flashes, Malaise/lethargy, Mood Swings, Palpitations, Polydipsia/polyuria, Skin Changes, Temperature Intolerance, Unexpected Weight Changes, Other Breast: No New/Changing Breast Lumps, No Nipple changes, No Nipple discharge, No Other Respiratory: No: Cough, Hemoptysis, Orthopnea, Pleuritic Pain, Shortness of breath, SOB with excertion, Sputum Changes, Stridor, Tachypnea, Wheezing, Other Cardiovascular: No Chest Pain, No Palpitations, No Orthopnea, No Paroxysmal Noc. Dyspnea, No Edema, No Lt Headedness, No Other Gastrointestinal: No Nausea, No Vomiting, No Abdominal Pain, No Diarrhea, No Constipation, No Melena, No Hematochezia, No Other Genitourinary: No Dysuria, No Frequency, No Incontinence, No Hematuria, No Retention, No Discharge, No Urgency, No Pain, No Flank Pain, No Other, No , No , No , No , No , No , No Musculoskeletal: Yes Gait Disturbance, Yes Joint Stiffness, Yes Muscular Weakness; No Joint Pain, No Joint Swelling, No Muscle Pain, No Pain In:, No Swelling In:, No Other Neurological: Yes Gait Disturbance; No Behavorial Changes, No Bowel/Bladder ControlChng, No Confusion, No Dizziness, No Headaches, No Impaired Coord/balance, No Memory Loss, No Numbness/Tingling, No Seizures, No Speech Problems, No Tremors, No Visual Changes, No Weakness, No Other Skin: Yes Dry Skin; No Eczema, No Hair Changes, No Lumps, No Mole Changes, No Mottling, No Nail Changes, No Pruritus, No Rash, No Skin Lesion Changes, No Other, No Acne Vitals Vitals Vital Signs Date Time Temp Pulse Resp B/P (MAP) Pulse Ox O2 Delivery O2 Flow Rate FiO2 04/11/21 11:00 97.4 63 16 134/63 (86) 96 Room Air 97.4 Physical Exam Physical Exam alert talking on phone to friend General: Alert, Oriented X3, Cooperative, No acute distress Heart: Normal S1, Other (irrr) Lungs: Clear Abdomen: Normal bowel sounds, Soft, No tenderness Extremities: No clubbing, No cyanosis, No edema Skin: No significant lesion Labs LABS * Independent Goal 3 - Ambulation Distance * 100' Goal 3 - Ambulation Device * Roller Walker Goal 3 Assessment * Appropriate - Continue Goal 4 - Stairs Assistance Required * Independent Goal 4 - Number of Stairs * >9 Goal 4 - Device on Stairs * Rail on Right * Rail on Left Goal 4 Assessment * Appropriate - Continue Treatment Plan * Therapeutic Exercise * Bed Mobility Training * Transfer training * Gait Training * Dynamic Balance Training Frequency of Treatment Expected * 5 visits/week Duration of Treatment Expected * 2 weeks Discharge Recommendations * Assisted Unit Discharge Recommendation - DME * Rolling Walker needed * in order to complete ADLs * and ambulation safely Discharge Recommendation Comments * skilled since living alone Laboratory Tests Test 04/10/21 18:54 04/11/21 04:50 04/11/21 07:23 04/11/21 11:39 Glucose (Fingerstick) 371 mg/dL (70-99) 104 mg/dL (70-99) 185 mg/dL (70-99) White Blood Count 7.1 x10^3/uL (4.0-11.0) Red Blood Count 3.11 x10^6/uL (4.30-5.70) Hemoglobin 10.2 g/dL (13.0-17.5) Hematocrit 29.8 % (39.0-53.0) Mean Corpuscular Volume 96 fL (79-100) Mean Corpuscular Hemoglobin 33 pg (25-35) Mean Corpuscular Hemoglobin Concent 34 g/dL (31-37) Red Cell Distribution Width 13.0 % (11.5-14.5) Platelet Count 159 x10^3/uL (140-400) Neutrophils (%) (Auto) 80 % (31-73) Lymphocytes (%) (Auto) 11 % (24-48) Monocytes (%) (Auto) 8 % (0-9) Eosinophils (%) (Auto) 0 % (0-3) Basophils (%) (Auto) 0 % (0-3) Neutrophils # (Auto) 5.6 x10^3/uL (1.8-7.7) Lymphocytes # (Auto) 0.8 x10^3/uL (1.0-4.8) Monocytes # (Auto) 0.6 x10^3/uL (0.0-1.1) Eosinophils # (Auto) 0.0 x10^3/uL (0.0-0.7) Basophils # (Auto) 0.0 x10^3/uL (0.0-0.2) Sodium Level 138 mmol/L (136-145) Potassium Level 3.8 mmol/L (3.5-5.1) Chloride Level 106 mmol/L (98-107) Carbon Dioxide Level 25 mmol/L (21-32) Anion Gap 7 (6-14) Blood Urea Nitrogen 23 mg/dL (8-26) Creatinine 0.8 mg/dL (0.7-1.3) Estimated GFR (Cockcroft-Gault) 91.0 BUN/Creatinine Ratio 29 (6-20) Glucose Level 124 mg/dL (70-99) Calcium Level 8.5 mg/dL (8.5-10.1) Total Bilirubin 0.3 mg/dL (0.2-1.0) Aspartate Amino Transf (AST/SGOT) 22 U/L (15-37) Alanine Aminotransferase (ALT/SGPT) 50 U/L (16-63) Alkaline Phosphatase 71 U/L (46-116) Total Protein 5.0 g/dL (6.4-8.2) Albumin 2.7 g/dL (3.4-5.0) Albumin/Globulin Ratio 1.2 (1.0-1.7) Assessment and Plan Assessmemt and Plan Problems Medical Problems: (1) Fall Status: Acute (2) New onset a-fib Status: Acute (3) Unable to ambulate Status: Acute Comment Review of Relevant I have reviewed the following items kleber (where applicable) has been applied. Labs Laboratory Tests Test 04/09/21 16:15 04/09/21 16:35 04/09/21 20:00 04/09/21 22:10 White Blood Count 12.0 x10^3/uL (4.0-11.0) Red Blood Count 3.62 x10^6/uL (4.30-5.70) Hemoglobin 11.7 g/dL (13.0-17.5) Hematocrit 35.1 % (39.0-53.0) Mean Corpuscular Volume 97 fL (79-100) Mean Corpuscular Hemoglobin 33 pg (25-35) Mean Corpuscular Hemoglobin Concent 34 g/dL (31-37) Red Cell Distribution Width 12.4 % (11.5-14.5) Platelet Count 187 x10^3/uL (140-400) Neutrophils (%) (Auto) 89 % (31-73) Lymphocytes (%) (Auto) 4 % (24-48) Monocytes (%) (Auto) 8 % (0-9) Eosinophils (%) (Auto) 0 % (0-3) Basophils (%) (Auto) 0 % (0-3) Neutrophils # (Auto) 10.7 x10^3/uL (1.8-7.7) Lymphocytes # (Auto) 0.4 x10^3/uL (1.0-4.8) Monocytes # (Auto) 0.9 x10^3/uL (0.0-1.1) Eosinophils # (Auto) 0.0 x10^3/uL (0.0-0.7) Basophils # (Auto) 0.0 x10^3/uL (0.0-0.2) Segmented Neutrophils % 81 % (35-66) Band Neutrophils % 5 % (0-9) Lymphocytes % 6 % (24-48) Monocytes % 8 % (0-10) Platelet Estimate Adequate (ADEQUATE) Sodium Level 141 mmol/L (136-145) Potassium Level 4.2 mmol/L (3.5-5.1) Chloride Level 106 mmol/L (98-107) Carbon Dioxide Level 24 mmol/L (21-32) Anion Gap 11 (6-14) Blood Urea Nitrogen 24 mg/dL (8-26) Creatinine 0.9 mg/dL (0.7-1.3) Estimated GFR (Cockcroft-Gault) 79.5 BUN/Creatinine Ratio 27 (6-20) Glucose Level 278 mg/dL (70-99) Calcium Level 9.1 mg/dL (8.5-10.1) Magnesium Level 1.8 mg/dL (1.8-2.4) Total Bilirubin 0.6 mg/dL (0.2-1.0) Aspartate Amino Transf (AST/SGOT) 26 U/L (15-37) Alanine Aminotransferase (ALT/SGPT) 48 U/L (16-63) Alkaline Phosphatase 90 U/L (46-116) Creatine Kinase 1453 U/L (39-308) Troponin I Quantitative 0.045 ng/mL (0.000-0.055) 0.032 ng/mL (0.000-0.055) 0.029 ng/mL (0.000-0.055) PJ-Nkp-P-Type Natriuretic Peptide 2282 pg/mL (0-449) Total Protein 5.6 g/dL (6.4-8.2) Albumin 3.4 g/dL (3.4-5.0) Albumin/Globulin Ratio 1.5 (1.0-1.7) Lipase 55 U/L (73-393) Urine Collection Type Unknown Urine Color Yellow Urine Clarity Clear Urine pH 5.0 (<5.0-8.0) Urine Specific [place] >=1.030 (1.000-1.030) Urine Protein 30 mg/dL (NEG-TRACE) Urine Glucose (UA) >=1000 mg/dL (NEG) Urine Ketones (Stick) Trace mg/dL (NEG) Urine Blood Small (NEG) Urine Nitrite Negative (NEG) Urine Bilirubin Negative (NEG) Urine Urobilinogen Dipstick 0.2 mg/dL (0.2 mg/dL) Urine Leukocyte Esterase Negative (NEG) Urine RBC 0 /HPF (0-2) Urine WBC 0 /HPF (0-4) Urine Bacteria 0 /HPF (0-FEW) Test 04/10/21 06:50 04/10/21 18:54 04/11/21 04:50 04/11/21 07:23 SARS-CoV-2 RNA (FRANCOIS) Negative (Negative) SARS-CoV-2 Antigen (Rapid) Negative (NEGATIVE) Glucose (Fingerstick) 371 mg/dL (70-99) 104 mg/dL (70-99) White Blood Count 7.1 x10^3/uL (4.0-11.0) Red Blood Count 3.11 x10^6/uL (4.30-5.70) Hemoglobin 10.2 g/dL (13.0-17.5) Hematocrit 29.8 % (39.0-53.0) Mean Corpuscular Volume 96 fL (79-100) Mean Corpuscular Hemoglobin 33 pg (25-35) Mean Corpuscular Hemoglobin Concent 34 g/dL (31-37) Red Cell Distribution Width 13.0 % (11.5-14.5) Platelet Count 159 x10^3/uL (140-400) Neutrophils (%) (Auto) 80 % (31-73) Lymphocytes (%) (Auto) 11 % (24-48) Monocytes (%) (Auto) 8 % (0-9) Eosinophils (%) (Auto) 0 % (0-3) Basophils (%) (Auto) 0 % (0-3) Neutrophils # (Auto) 5.6 x10^3/uL (1.8-7.7) Lymphocytes # (Auto) 0.8 x10^3/uL (1.0-4.8) Monocytes # (Auto) 0.6 x10^3/uL (0.0-1.1) Eosinophils # (Auto) 0.0 x10^3/uL (0.0-0.7) Basophils # (Auto) 0.0 x10^3/uL (0.0-0.2) Sodium Level 138 mmol/L (136-145) Potassium Level 3.8 mmol/L (3.5-5.1) Chloride Level 106 mmol/L (98-107) Carbon Dioxide Level 25 mmol/L (21-32) Anion Gap 7 (6-14) Blood Urea Nitrogen 23 mg/dL (8-26) Creatinine 0.8 mg/dL (0.7-1.3) Estimated GFR (Cockcroft-Gault) 91.0 BUN/Creatinine Ratio 29 (6-20) Glucose Level 124 mg/dL (70-99) Calcium Level 8.5 mg/dL (8.5-10.1) Total Bilirubin 0.3 mg/dL (0.2-1.0) Aspartate Amino Transf (AST/SGOT) 22 U/L (15-37) Alanine Aminotransferase (ALT/SGPT) 50 U/L (16-63) Alkaline Phosphatase 71 U/L (46-116) Total Protein 5.0 g/dL (6.4-8.2) Albumin 2.7 g/dL (3.4-5.0) Albumin/Globulin Ratio 1.2 (1.0-1.7) Test 04/11/21 11:39 Glucose (Fingerstick) 185 mg/dL (70-99) Laboratory Tests Test 04/10/21 18:54 04/11/21 04:50 04/11/21 07:23 04/11/21 11:39 Glucose (Fingerstick) 371 mg/dL (70-99) 104 mg/dL (70-99) 185 mg/dL (70-99) White Blood Count 7.1 x10^3/uL (4.0-11.0) Red Blood Count 3.11 x10^6/uL (4.30-5.70) Hemoglobin 10.2 g/dL (13.0-17.5) Hematocrit 29.8 % (39.0-53.0) Mean Corpuscular Volume 96 fL (79-100) Mean Corpuscular Hemoglobin 33 pg (25-35) Mean Corpuscular Hemoglobin Concent 34 g/dL (31-37) Red Cell Distribution Width 13.0 % (11.5-14.5) Platelet Count 159 x10^3/uL (140-400) Neutrophils (%) (Auto) 80 % (31-73) Lymphocytes (%) (Auto) 11 % (24-48) Monocytes (%) (Auto) 8 % (0-9) Eosinophils (%) (Auto) 0 % (0-3) Basophils (%) (Auto) 0 % (0-3) Neutrophils # (Auto) 5.6 x10^3/uL (1.8-7.7) Lymphocytes # (Auto) 0.8 x10^3/uL (1.0-4.8) Monocytes # (Auto) 0.6 x10^3/uL (0.0-1.1) Eosinophils # (Auto) 0.0 x10^3/uL (0.0-0.7) Basophils # (Auto) 0.0 x10^3/uL (0.0-0.2) Sodium Level 138 mmol/L (136-145) Potassium Level 3.8 mmol/L (3.5-5.1) Chloride Level 106 mmol/L (98-107) Carbon Dioxide Level 25 mmol/L (21-32) Anion Gap 7 (6-14) Blood Urea Nitrogen 23 mg/dL (8-26) Creatinine 0.8 mg/dL (0.7-1.3) Estimated GFR (Cockcroft-Gault) 91.0 BUN/Creatinine Ratio 29 (6-20) Glucose Level 124 mg/dL (70-99) Calcium Level 8.5 mg/dL (8.5-10.1) Total Bilirubin 0.3 mg/dL (0.2-1.0) Aspartate Amino Transf (AST/SGOT) 22 U/L (15-37) Alanine Aminotransferase (ALT/SGPT) 50 U/L (16-63) Alkaline Phosphatase 71 U/L (46-116) Total Protein 5.0 g/dL (6.4-8.2) Albumin 2.7 g/dL (3.4-5.0) Albumin/Globulin Ratio 1.2 (1.0-1.7) Medications Current Medications Sodium Chloride 1,000 ml @ 1,000 mls/hr Q1H IV Last administered on 04/09/21at 16:30; Start 04/09/21 at 16:30; Stop 04/09/21 at 17:29; Status DC Diphtheria/ Tetanus/Acell Pertussis (ADACEL TDap SYRINGE) 0.5 ml ONCE ONCE VAX IM Last administered on 04/09/21at 16:30; Start 04/09/21 at 16:30; Stop 04/09/21 at 16:31; Status DC Neomycin/ Polymyxin/ Bacitracin (Triple Antibiotic Ointment) 1 pkt 1X ONCE TP Last administered on 04/09/21at 17:45; Start 04/09/21 at 17:45; Stop 04/09/21 at 17:46; Status DC Sodium Chloride (Normal Saline Flush) 3 ml QSHIFT PRN IV AFTER MEDS AND BLOOD DRAWS; Start 04/10/21 at 11:00 Sodium Chloride 1,000 ml @ 65 mls/hr [id number] IV Last administered on 04/11/21at 02:50; Start 04/10/21 at 11:00 Ondansetron HCl (Zofran) 4 mg PRN Q4HRS PRN IV NAUSEA/VOMITING; Start 04/10/21 at 11:00 Acetaminophen (Tylenol) 650 mg PRN Q4HRS PRN PO TEMP OVER 100.4F OR MILD PAIN; Start 04/10/21 at 11:00 Al Hydroxide/Mg Hydroxide (Mylanta Plus Xs) 30 ml PRN DAILY PRN PO HEARTBURN / GAS; Start 04/10/21 at 11:00 Sodium Monofluorophosphate (Fleet Adult) 133 ml PRN DAILY PRN LA CONSTIPATION; Start 04/10/21 at 11:00 Docusate Sodium (Colace) 100 mg PRN BID PRN PO HARD STOOLS; Start 04/10/21 at 11:00 Albuterol Sulfate (Ventolin Neb Soln) 2.5 mg PRN Q4HRS PRN NEB SHORTNESS OF BREATH; Start 04/10/21 at 11:00 Guaifenesin (Robitussin) 200 mg PRN Q4HRS PRN PO COUGH; Start 04/10/21 at 11:00 Enoxaparin Sodium (Lovenox 40mg Syringe) 40 mg Q24H SQ Last administered on 04/11/21at 12:26; Start 04/10/21 at 11:00 Insulin Human Lispro (HumaLOG) 0-5 UNITS TIDWMEALS SQ Last administered on 04/11/21at 12:35; Start 04/10/21 at 17:00 Dextrose (Dextrose 50%-Water Syringe) 12.5 gm PRN Q15MIN PRN IV SEE COMMENTS; Start 04/10/21 at 14:15 Amlodipine Besylate (Norvasc) 10 mg DAILY PO Last administered on 04/11/21at 09:47; Start 04/11/21 at 09:00 Vitamin D (Vitamin D3) 1,000 unit DAILY PO Last administered on 04/11/21at 09:45; Start 04/11/21 at 09:00 Glipizide (Glucotrol) 5 mg BIDAC PO Last administered on 04/11/21at 09:45; Start 04/10/21 at 17:30 Lisinopril (Prinivil) 5 mg DAILY PO Last administered on 04/11/21at 09:47; Start 04/11/21 at 09:00 Linagliptin (Tradjenta) 5 mg DAILY PO Last administered on 04/11/21at 09:45; Start 04/11/21 at 09:00 Non-Formulary Medication (Info (No Known Medications Prior To Admisstion)) 1 each DAILY MC ; Start 04/11/21 at 09:00; Status UNV Latanoprost (Xalatan) 1 drop QHS OU Last administered on 04/10/21at 20:17; Start 04/10/21 at 21:00 Metformin HCl (Glucophage) 1,000 mg BIDWMEALS PO Last administered on 04/11/21at 09:45; Start 04/10/21 at 17:30 Atorvastatin Calcium (Lipitor) 5 mg DAILY PO Last administered on 04/11/21at 09:46; Start 04/11/21 at 09:00 Triamterene/HCTZ (Maxzide 37.5/ 25mg) 1 tab DAILY PO Last administered on 04/11/21at 09:45; Start 04/11/21 at 09:00 Active Scripts Active Reported Lisinopril 5 Mg Tablet 1 Tab PO DAILY Latanoprost 0.005% Eye Drop (Latanoprost/Pf) 7.5 Ml Drops 1 Drop OU QHS Pravastatin Sodium 10 Mg Tablet 1 Tab PO DAILY Metformin Hcl 1,000 Mg Tablet 1,000 Mg PO BIDWMEALS Triamterene-Hctz 37.5-25 Mg Cp (Triamterene/Hydrochlorothiazid) 1 Each Capsule 1 Cap PO DAILY Glipizide 5 Mg Tablet 1 Tab PO BID Vitamin D3 (Vitamin D) 25 Mcg Tablet 25 Mcg PO DAILY 1,000 UNITS = 25 MCG Amlodipine Besylate 10 Mg Tablet 10 Mg PO DAILY Nesina (Alogliptin Benzoate) 25 Mg Tablet 1 Tab PO DAILY 30 Days Vitals/I & O Vital Sign - Last 24 Hours 04/10/21 04/10/21 04/10/21 04/10/21 15:00 17:31 19:15 20:00 Temp 96.3 97.6 96.3 97.6 Pulse 58 59 Resp 20 16 B/P (MAP) 134/61 (85) 118/57 (77) Pulse Ox 97 98 97 O2 Delivery Room Air Room Air Room Air Room Air 04/10/21 04/11/21 04/11/21 04/11/21 22:45 03:13 07:00 09:47 Temp 97.9 97.7 97.7 97.9 97.7 97.7 Pulse 55 52 53 53 Resp 16 16 16 B/P (MAP) 122/60 (80) 123/60 (81) 122/62 (82) 122/62 Pulse Ox 97 95 95 O2 Delivery Room Air Room Air Room Air 04/11/21 04/11/21 09:47 11:00 Temp 97.4 97.4 Pulse 53 63 Resp 16 B/P (MAP) 122/62 134/63 (86) Pulse Ox 96 O2 Delivery Room Air Intake and Output 04/10/21 04/10/21 04/11/21 15:00 23:00 07:00 Intake Total 560 ml 815 ml 1450 ml Output Total 220 ml 200 ml Balance 340 ml 615 ml 1450 ml Justicifation of Admission Dx: Justifications for Admission: Justification of Admission Dx: Yes CHF: Hemodynamic Instability Sepsis: Altered Mental Status DANTE BAH MD Apr 11, 2021 13:29
--- NOTE | 2021-04-11 14:39 | NUR ---
SS following up with discharge planning. SS reviewed pt chart and discussed with pt RN. Pt is currently on room air. COVID19 negative. Wound care following. PT/OT recommended half-way unit. SS met with pt and pt's family to discuss discharge planning and half-way unit. Pt's family requested that pt go to [facility], ; fax [phone]. SS was notified that [facility] is currently on admission hold until 04/23/2021 due to COVID19. Pt's family notified and requesting referral to [facility], ; fax [phone]. SS phoned and faxed referral as requested. Per pt's family, pt has had both COVID19 vaccinations. SS will continue to follow for discharge planning.
[2021-04-11 15:00] VITALS: BP 104/54
--- NOTE | 2021-04-11 16:38 | RAD ---
US DPLX CAROTID BILAT History: Carotid stenosis. COMPARISON: None Technique: Duplex sonography of the cervical portion of both carotid arteries was performed. Real-ruma e grayscale, color flow Doppler, and Doppler spectral waveform analysis is performed. PQRS Compliance Statement - Stenosis calculations for CT, MR and conventional angiography are based u hali measurement of the distal ICA diameter in accordance with the NASCET methodology. Stenosis calcu lations for carotid ultrasound studies are derived from validated velocity criteria which are known t o correlate with the NASCET methodology. Findings: Right side: Peak systolic flow velocity of the CCA is 82 cm/sec. Peak systolic flow velocity of the ICA is 82 cm/sec. The ICA/CCA ratio is 1.0. Peak end diastolic flow velocity of the ICA is 8 cm/sec. The peak systolic velocity of the ECA is 101 cm/sec. Coarsely calcified plaque in the right carotid. Left side: Peak systolic flow velocity of the CCA is 84 cm/sec. Peak systolic flow velocity of the ICA is 88 cm/sec. The ICA/CCA ratio is 1.05. Peak end diastolic flow velocity of the ICA is 11 cm/sec. Peak systolic flow velocity of the ECA is 102 cm/sec. Coarse calcified plaque at the left carotid bulb. Vertebral arteries: Bilateral vertebral arteries demonstrate antegrade flow. IMPRESSION: 1. No hemodynamically significant internal carotid artery stenosis. Electronically signed by: Ajya Phillip MD (04/11/2021 4:36 PM) [id number]
--- NOTE | 2021-04-11 17:32 | CARD ---
MR#: [id number] Date of Study: 04/10/2021 Ordering Physician: DANTE BAH, Referring Physician: DANTE BAH, Tech: Nataliia Brown, [facility] APPROVED REPORT EXAM: Two-dimensional and M-mode echocardiogram with Doppler and color Doppler. Other Information Quality : GoodHR: 93bpm Technically limited study due to Patient in recliner INDICATION COPD Atrial Fibrillation RISK FACTORS Hypertension Hyperlipidemia Diabetes 2D DIMENSIONS Left Atrium(2D)3.7 (1.6-4.0cm)IVSd0.9 (0.7-1.1cm) Aortic Root(2D)3.4 (2.0-3.7cm)LVDd4.4 (3.9-5.9cm) LVOT Diameter2.1 (1.8-2.4cm)PWd0.8 (0.7-1.1cm) LVDs2.8 (2.5-4.0cm)FS (%) 35.1 % SV55.9 ml Aortic Valve AoV Peak Ervin.198.6cm/sAoV VTI51.7cm AO Peak GR.15.8mmHgLVOT VTI 20.37cm AO Mean GR.10mmHg Mitral Valve MV E Jxrppfvi93.7cm/sMV E Peak Gr.5mmHg MV DECEL [id number] A Byajjyks51.0cm/s MV E Mean Gr.2mmHgE/A Ratio0.7 TDI Lateral E' P. V9.65cm/sMedial E' P. V6.24cm/s E/Lateral E'7.4E/Medial E'11.5 Tricuspid Valve TR P. [id number] [id number] TR Peak Gr.[id number] LEFT VENTRICLE The left ventricle is normal size. There is normal left ventricular wall thickness. The left ventricu lar systolic function is normal and the ejection fraction is within normal range. The Ejection Fracti on is estimated at 55%. There is normal LV segmental wall motion. Transmitral Doppler flow pattern is Grade I-abnormal relaxation pattern. RIGHT VENTRICLE The right ventricle is normal size. There is normal right ventricular wall thickness. The right ventr icular systolic function is normal. ATRIA The left atrium size is normal. The right atrium size is normal. The interatrial septum is intact wit h no evidence for an atrial septal defect or patent foramen ovale as noted on 2-D or Doppler imaging. AORTIC VALVE The aortic valve is calcified and displays decreased opening. Doppler and Color Flow revealed no sign ificant aortic regurgitation. Calculated aortic valve area is 1.27 cm2 with maximum pressure gradient of 20 mmHg and mean pressure gradient of 11 mmHg. Visually the patient has moderate aortic stenosis. MITRAL VALVE The mitral valve is normal in structure and function. There is no evidence of mitral valve prolapse. There is no mitral valve stenosis. Doppler and Color-flow revealed trace mitral regurgitation. TRICUSPID VALVE The tricuspid valve is normal in structure and function. Doppler and Color Flow revealed trace tricus pid regurgitation with an estimated PAP of 32 mmHg. There is no tricuspid valve stenosis. PULMONIC VALVE The pulmonic valve is not well visualized. Doppler and Color Flow revealed trace pulmonic valvular re gurgitation. GREAT VESSELS The aortic root is normal in size. The SVC was not visualized. PERICARDIAL EFFUSION There is no evidence of significant pericardial effusion. Critical Notification Critical Value: No <Conclusion> The left ventricle is normal size. The left ventricular systolic function is normal and the ejection fraction is within normal range. The Ejection Fraction is estimated at 55%. The aortic valve is calcified and displays decreased opening. Doppler and Color Flow revealed no significant aortic regurgitation. Calculated aortic valve area is 1.27 cm2 with maximum pressure gradient of 20 mmHg and mean pressure gradient of 11 mmHg. Visually the patient has moderate aortic stenosis. Doppler and Color-flow revealed trace mitral regurgitation. Doppler and Color Flow revealed trace tricuspid regurgitation with an estimated PAP of 32 mmHg. Signed by : Abdon Partida MD Electronically Approved : 04/11/2021 17:31:49
[2021-04-11] MEDS: LATANOPROST 0.005% OPHTH SOLUTION 2.5ML BOTTLE. OU SCH (19:56)
[2021-04-11 23:10] VITALS: BP 105/54
[2021-04-12 02:40] VITALS: BP 132/64
[2021-04-12 04:56] LABS: BASO % 0 % (0-3); EOS % 0 % (0-3); HEMATOCRIT 29.9 % (39.0-53.0); HEMOGLOBIN 10.4 g/dL (13.0-17.5); LYMPH # 0.8 x10^3/uL (1.0-4.8); LYMPH % 12 % (24-48); MEAN CORPUSCULAR HEMOGLOBIN 34 pg (25-35); MEAN CORPUSCULAR HGB CONC 35 g/dL (31-37); MEAN CORPUSCULAR VOLUME 97 fL (79-100); MONO # 0.6 x10^3/uL (0.0-1.1); MONO % 9 % (0-9); NEUT # 5.2 x10^3/uL (1.8-7.7); NEUT % 79 % (31-73); PLATELET COUNT 153 x10^3/uL (140-400); RED BLOOD COUNT 3.07 x10^6/uL (4.30-5.70); RED CELL DISTRIBUTION WIDTH 12.8 % (11.5-14.5); WHITE BLOOD COUNT 6.6 x10^3/uL (4.0-11.0)
[2021-04-12 05:19] LABS: CALCIUM 8.6 mg/dL (8.5-10.1); CREATININE 0.9 mg/dL (0.7-1.3); GFR 79.5; POTASSIUM 3.7 mmol/L (3.5-5.1)
[2021-04-12 06:45] VITALS: BP 97/55
[2021-04-12] MEDS: INSULIN LISPRO 300 UNITS/3 ML VIAL. SQ SCH (08:00)
[2021-04-12] MEDS: glipiZIDE 5 MG TABLET PO SCH (08:51)
[2021-04-12] MEDS: ATORVASTATIN CALCIUM 10 MG TABLET. PO SCH (08:51)
[2021-04-12] MEDS: LINAGLIPTIN 5 MG TABLET PO SCH (08:51)
[2021-04-12] MEDS: metFORMIN 500 MG TABLET PO SCH (08:51)
[2021-04-12] MEDS: CHOLECALCIFEROL (VITAMIN D3) 1,000 UNIT TABLET PO SCH (08:51)
[2021-04-12] MEDS: ENOXAPARIN 40 MG/0.4 ML SYRINGE. SQ SCH (08:52)
[2021-04-12] MEDS: TRIAMTERENE/HCTZ 37.5/25MG TABLET. PO SCH (08:58)
[2021-04-12] MEDS: LISINOPRIL 5 MG TABLET. PO SCH (08:58)
--- NOTE | 2021-04-12 09:03 | PDOC ---
PROGRESS NOTES Date of Service: DATE: 04/12/21 TIME: 09:03 Chief Complaint Chief Complaint VTE Prophylaxis Ordered VTE Prophylaxis Devices: No VTE Pharmacological Prophylaxi: Yes Assessment/Plan Assessment/Plan Impression: Fall Gait instability, inability to ambulate safely Arrhythmia; concerns for AFIB. Review of EKG's (3) show SR with PAC. No AFIB noted Rhabdomyolysis PLAN ADMITTED======== tele bed ECHO Cardiology consult PT/OT SNF BED NEEDED NEUROCHECKS Q 4 HRS Justifications for Admission Other Justification History of Present Illness History of Present Illness Identification/Chief Complaint Chief Complaint FALL IN YARD, UNABLE TO SELF AMBULATE History of Present Illness History of Present Illness 89 year old male who presented to ER with fall working in the yard and fell. , was unable to arise on his own strength did not lose consciousness or hit his head. He was laying outside all night long and all day 8-17 He has bilateral abrasions on his knees, and old pressure ulcer on lateral left ankle/ bilateral small abrasions on his hands and fingers. denies shortness of breath, chest pain, abdominal pain, nausea, vomiting, diarrhea, dizziness, headache, back pain, neck pain, fever, cough. hx COPD, diabetes, hypertension, high cholesterol, rotator cuff surgery, carpal tunnel surgery./ trauma work up c/w Negative CT C-spine for acute traumatic injury.//Hyperinflation suggesting COPD.A. fib on EKG IS new he is very wobbly and unstable on his feet.chronically PLAN tele bed ECHO Cardiology consult PT/OT SNF BED NEEDED ADMIT Past Medical History Past Medical History Past Medical History Past Medical History: Diabetes-Type II, High Cholesterol, Hypertension Past Surgical History: Other Additional Past Surgical Histo: knee, rotator cuff, carpal tunn. lung Smoking Status: Current Every Day Smoker Alcohol Use: Occasionally Drug Use: None fhx copd Cardiovascular: Hyperlipidemia Pulmonary: No pertinent hx GI: Constipation Musculoskeletal: Osteoarthritis Family History Family History: Hypertension Social History Smoke: No ALCOHOL: none Drugs: None Current Problem List Problem List Problems Medical Problems: (1) Fall Status: Acute (2) New onset a-fib Status: Acute (3) Unable to ambulate Status: Acute Current Medications Current Medications Current Medications Sodium Chloride 1,000 ml @ 1,000 mls/hr Q1H IV Last administered on 04/09/21at 16:30; Start 04/09/21 at 16:30; Stop 04/09/21 at 17:29; Status DC Diphtheria/ Tetanus/Acell Pertussis (ADACEL TDap SYRINGE) 0.5 ml ONCE ONCE VAX IM Last administered on 04/09/21at 16:30; Start 04/09/21 at 16:30; Stop 04/09/21 at 16:31; Status DC Neomycin/ Polymyxin/ Bacitracin (Triple Antibiotic Ointment) 1 pkt 1X ONCE TP Last administered on 04/09/21at 17:45; Start 04/09/21 at 17:45; Stop 04/09/21 at 17:46; Status DC Active Scripts Active Reported No Known Medications Prior To Admisstion (Info) Each 1 Each DAILY Allergies Allergies: Coded Allergies: No Known Drug Allergies (Unverified , 04/09/21) ROS Review of System Musculoskeletal: Denies back pain or + left lateral ankle joint pain. + Fall [] Integument: Denies rash. + Abrasions [] Neurologic: Denies headache, focal weakness or sensory changes. [] Endocrine: Denies polyuria or polydipsia. [] Lymphatic: Denies swollen glands. [] Psychiatric: Denies depression or anxiety. [] General: YES: Fatigue; No: Chills, Night Sweats, Malaise, Appetite, Other PSYCHOLOGICAL ROS: No: Anxiety, Behavioral Disorder, Concentration difficultie, Decreased libido, Depression, Disorientation, Hallucinations, Hostility, Irritablity, Memory difficulties, Mood Swings, Obsessive thoughts, Physical abuse, Sexual abuse, Sleep disturbances, Suicidal ideation, Other Eyes: Yes Decreased vision; No Blurry vision, No Double vision, No Dry eyes, No Excessive tearing, No Eye Pain, No Itchy Eyes, No Loss of vision, No Photophobia, No Scotomata, No Uses contacts, No Uses glasses, No Other HEENT: No: Heacaches, Visual Changes, Hearing change, Nasal congestion, Nasal discharge, Oral lesions, Sinus pain, Sore Throat, Epistaxis, Sneezing, Snoring, Tinnitus, Vertigo, Vocal changes, Other ALLERGY AND IMMUNOLOGY: No: Hives, Insect Bite Sensitivity, Itchy/Watery Eyes, Nasal Congestion, Post Nasal Drip, Seasonal Allergies, Other Hematological and Lymphatic: No: Bleeding Problems, Blood Clots, Blood Transfusions, Brusing, Night Sweats, Pallor, Swollen Lymph Nodes, Other ENDOCRINE: No: Breast Changes, Galactorrhea, Hair Pattern Changes, Hot Flashes, Malaise/lethargy, Mood Swings, Palpitations, Polydipsia/polyuria, Skin Changes, Temperature Intolerance, Unexpected Weight Changes, Other Breast: No New/Changing Breast Lumps, No Nipple changes, No Nipple discharge, No Other Respiratory: No: Cough, Hemoptysis, Orthopnea, Pleuritic Pain, Shortness of breath, SOB with excertion, Sputum Changes, Stridor, Tachypnea, Wheezing, Other Cardiovascular: No Chest Pain, No Palpitations, No Orthopnea, No Paroxysmal Noc. Dyspnea, No Edema, No Lt Headedness, No Other Gastrointestinal: No Nausea, No Vomiting, No Abdominal Pain, No Diarrhea, No Constipation, No Melena, No Hematochezia, No Other Genitourinary: No Dysuria, No Frequency, No Incontinence, No Hematuria, No Retention, No Discharge, No Urgency, No Pain, No Flank Pain, No Other, No , No , No , No , No , No , No Musculoskeletal: Yes Gait Disturbance, Yes Joint Stiffness, Yes Muscular Weakness; No Joint Pain, No Joint Swelling, No Muscle Pain, No Pain In:, No Swelling In:, No Other Neurological: Yes Gait Disturbance; No Behavorial Changes, No Bowel/Bladder ControlChng, No Confusion, No Dizziness, No Headaches, No Impaired Coord/balance, No Memory Loss, No Numbness/Tingling, No Seizures, No Speech Problems, No Tremors, No Visual Changes, No Weakness, No Other Skin: Yes Dry Skin; No Eczema, No Hair Changes, No Lumps, No Mole Changes, No Mottling, No Nail Changes, No Pruritus, No Rash, No Skin Lesion Changes, No Other, No Acne 8-20 Fall Gait instability, inability to SAFELY ambulate Arrhythmia; concerns for AFIB. Review of EKG's (3) show SR with PAC. No AFIB noted Rhabdomyolysis Moderate : noted via TTE with nml EF and WM secondary prevention measures No BB with noted bradycardia [facility] to [facility] D/C TO PP D/C PLANNING 36 MIN Vitals Vitals Vital Signs Date Time Temp Pulse Resp B/P (MAP) Pulse Ox O2 Delivery O2 Flow Rate FiO2 04/12/21 08:58 80 04/12/21 06:45 97.9 18 97/55 (69) 94 Room Air 97.9 Physical Exam Physical Exam alert talking on phone to friend General: Alert, Oriented X3, Cooperative, No acute distress Heart: Regular rate, Normal S1, Other (irrr) Lungs: Clear Abdomen: Normal bowel sounds, Soft, No tenderness Extremities: No clubbing, No cyanosis, No edema Skin: No significant lesion Labs LABS Laboratory Tests Test 04/11/21 11:39 04/11/21 16:35 04/11/21 21:07 04/12/21 04:00 Glucose (Fingerstick) 185 mg/dL (70-99) 207 mg/dL (70-99) 257 mg/dL (70-99) White Blood Count 6.6 x10^3/uL (4.0-11.0) Red Blood Count 3.07 x10^6/uL (4.30-5.70) Hemoglobin 10.4 g/dL (13.0-17.5) Hematocrit 29.9 % (39.0-53.0) Mean Corpuscular Volume 97 fL (79-100) Mean Corpuscular Hemoglobin 34 pg (25-35) Mean Corpuscular Hemoglobin Concent 35 g/dL (31-37) Red Cell Distribution Width 12.8 % (11.5-14.5) Platelet Count 153 x10^3/uL (140-400) Neutrophils (%) (Auto) 79 % (31-73) Lymphocytes (%) (Auto) 12 % (24-48) Monocytes (%) (Auto) 9 % (0-9) Eosinophils (%) (Auto) 0 % (0-3) Basophils (%) (Auto) 0 % (0-3) Neutrophils # (Auto) 5.2 x10^3/uL (1.8-7.7) Lymphocytes # (Auto) 0.8 x10^3/uL (1.0-4.8) Monocytes # (Auto) 0.6 x10^3/uL (0.0-1.1) Eosinophils # (Auto) 0.0 x10^3/uL (0.0-0.7) Basophils # (Auto) 0.0 x10^3/uL (0.0-0.2) Sodium Level 138 mmol/L (136-145) Potassium Level 3.7 mmol/L (3.5-5.1) Chloride Level 106 mmol/L (98-107) Carbon Dioxide Level 23 mmol/L (21-32) Anion Gap 9 (6-14) Blood Urea Nitrogen 22 mg/dL (8-26) Creatinine 0.9 mg/dL (0.7-1.3) Estimated GFR (Cockcroft-Gault) 79.5 Glucose Level 272 mg/dL (70-99) Calcium Level 8.6 mg/dL (8.5-10.1) Creatine Kinase 308 U/L (39-308) Test 04/12/21 07:38 Glucose (Fingerstick) 202 mg/dL (70-99) Assessment and Plan Assessmemt and Plan Problems Medical Problems: (1) Fall Status: Acute (2) New onset a-fib Status: Acute (3) Unable to ambulate Status: Acute Comment Review of Relevant I have reviewed the following items kleber (where applicable) has been applied. Labs Laboratory Tests Test 04/10/21 18:54 04/11/21 04:50 04/11/21 07:23 04/11/21 11:39 Glucose (Fingerstick) 371 mg/dL (70-99) 104 mg/dL (70-99) 185 mg/dL (70-99) White Blood Count 7.1 x10^3/uL (4.0-11.0) Red Blood Count 3.11 x10^6/uL (4.30-5.70) Hemoglobin 10.2 g/dL (13.0-17.5) Hematocrit 29.8 % (39.0-53.0) Mean Corpuscular Volume 96 fL (79-100) Mean Corpuscular Hemoglobin 33 pg (25-35) Mean Corpuscular Hemoglobin Concent 34 g/dL (31-37) Red Cell Distribution Width 13.0 % (11.5-14.5) Platelet Count 159 x10^3/uL (140-400) Neutrophils (%) (Auto) 80 % (31-73) Lymphocytes (%) (Auto) 11 % (24-48) Monocytes (%) (Auto) 8 % (0-9) Eosinophils (%) (Auto) 0 % (0-3) Basophils (%) (Auto) 0 % (0-3) Neutrophils # (Auto) 5.6 x10^3/uL (1.8-7.7) Lymphocytes # (Auto) 0.8 x10^3/uL (1.0-4.8) Monocytes # (Auto) 0.6 x10^3/uL (0.0-1.1) Eosinophils # (Auto) 0.0 x10^3/uL (0.0-0.7) Basophils # (Auto) 0.0 x10^3/uL (0.0-0.2) Sodium Level 138 mmol/L (136-145) Potassium Level 3.8 mmol/L (3.5-5.1) Chloride Level 106 mmol/L (98-107) Carbon Dioxide Level 25 mmol/L (21-32) Anion Gap 7 (6-14) Blood Urea Nitrogen 23 mg/dL (8-26) Creatinine 0.8 mg/dL (0.7-1.3) Estimated GFR (Cockcroft-Gault) 91.0 BUN/Creatinine Ratio 29 (6-20) Glucose Level 124 mg/dL (70-99) Calcium Level 8.5 mg/dL (8.5-10.1) Total Bilirubin 0.3 mg/dL (0.2-1.0) Aspartate Amino Transf (AST/SGOT) 22 U/L (15-37) Alanine Aminotransferase (ALT/SGPT) 50 U/L (16-63) Alkaline Phosphatase 71 U/L (46-116) Creatine Kinase 539 U/L (39-308) Total Protein 5.0 g/dL (6.4-8.2) Albumin 2.7 g/dL (3.4-5.0) Albumin/Globulin Ratio 1.2 (1.0-1.7) Test 04/11/21 16:35 04/11/21 21:07 04/12/21 04:00 04/12/21 07:38 Glucose (Fingerstick) 207 mg/dL (70-99) 257 mg/dL (70-99) 202 mg/dL (70-99) White Blood Count 6.6 x10^3/uL (4.0-11.0) Red Blood Count 3.07 x10^6/uL (4.30-5.70) Hemoglobin 10.4 g/dL (13.0-17.5) Hematocrit 29.9 % (39.0-53.0) Mean Corpuscular Volume 97 fL (79-100) Mean Corpuscular Hemoglobin 34 pg (25-35) Mean Corpuscular Hemoglobin Concent 35 g/dL (31-37) Red Cell Distribution Width 12.8 % (11.5-14.5) Platelet Count 153 x10^3/uL (140-400) Neutrophils (%) (Auto) 79 % (31-73) Lymphocytes (%) (Auto) 12 % (24-48) Monocytes (%) (Auto) 9 % (0-9) Eosinophils (%) (Auto) 0 % (0-3) Basophils (%) (Auto) 0 % (0-3) Neutrophils # (Auto) 5.2 x10^3/uL (1.8-7.7) Lymphocytes # (Auto) 0.8 x10^3/uL (1.0-4.8) Monocytes # (Auto) 0.6 x10^3/uL (0.0-1.1) Eosinophils # (Auto) 0.0 x10^3/uL (0.0-0.7) Basophils # (Auto) 0.0 x10^3/uL (0.0-0.2) Sodium Level 138 mmol/L (136-145) Potassium Level 3.7 mmol/L (3.5-5.1) Chloride Level 106 mmol/L (98-107) Carbon Dioxide Level 23 mmol/L (21-32) Anion Gap 9 (6-14) Blood Urea Nitrogen 22 mg/dL (8-26) Creatinine 0.9 mg/dL (0.7-1.3) Estimated GFR (Cockcroft-Gault) 79.5 Glucose Level 272 mg/dL (70-99) Calcium Level 8.6 mg/dL (8.5-10.1) Creatine Kinase 308 U/L (39-308) Laboratory Tests Test 04/11/21 11:39 04/11/21 16:35 04/11/21 21:07 04/12/21 04:00 Glucose (Fingerstick) 185 mg/dL (70-99) 207 mg/dL (70-99) 257 mg/dL (70-99) White Blood Count 6.6 x10^3/uL (4.0-11.0) Red Blood Count 3.07 x10^6/uL (4.30-5.70) Hemoglobin 10.4 g/dL (13.0-17.5) Hematocrit 29.9 % (39.0-53.0) Mean Corpuscular Volume 97 fL (79-100) Mean Corpuscular Hemoglobin 34 pg (25-35) Mean Corpuscular Hemoglobin Concent 35 g/dL (31-37) Red Cell Distribution Width 12.8 % (11.5-14.5) Platelet Count 153 x10^3/uL (140-400) Neutrophils (%) (Auto) 79 % (31-73) Lymphocytes (%) (Auto) 12 % (24-48) Monocytes (%) (Auto) 9 % (0-9) Eosinophils (%) (Auto) 0 % (0-3) Basophils (%) (Auto) 0 % (0-3) Neutrophils # (Auto) 5.2 x10^3/uL (1.8-7.7) Lymphocytes # (Auto) 0.8 x10^3/uL (1.0-4.8) Monocytes # (Auto) 0.6 x10^3/uL (0.0-1.1) Eosinophils # (Auto) 0.0 x10^3/uL (0.0-0.7) Basophils # (Auto) 0.0 x10^3/uL (0.0-0.2) Sodium Level 138 mmol/L (136-145) Potassium Level 3.7 mmol/L (3.5-5.1) Chloride Level 106 mmol/L (98-107) Carbon Dioxide Level 23 mmol/L (21-32) Anion Gap 9 (6-14) Blood Urea Nitrogen 22 mg/dL (8-26) Creatinine 0.9 mg/dL (0.7-1.3) Estimated GFR (Cockcroft-Gault) 79.5 Glucose Level 272 mg/dL (70-99) Calcium Level 8.6 mg/dL (8.5-10.1) Creatine Kinase 308 U/L (39-308) Test 04/12/21 07:38 Glucose (Fingerstick) 202 mg/dL (70-99) Microbiology 04/10/21 Blood Culture - Preliminary, Resulted NO GROWTH AFTER 1 DAY Medications Current Medications Sodium Chloride 1,000 ml @ 1,000 mls/hr Q1H IV Last administered on 04/09/21at 16:30; Start 04/09/21 at 16:30; Stop 04/09/21 at 17:29; Status DC Diphtheria/ Tetanus/Acell Pertussis (ADACEL TDap SYRINGE) 0.5 ml ONCE ONCE VAX IM Last administered on 04/09/21at 16:30; Start 04/09/21 at 16:30; Stop 04/09/21 at 16:31; Status DC Neomycin/ Polymyxin/ Bacitracin (Triple Antibiotic Ointment) 1 pkt 1X ONCE TP Last administered on 04/09/21at 17:45; Start 04/09/21 at 17:45; Stop 04/09/21 at 17:46; Status DC Sodium Chloride (Normal Saline Flush) 3 ml QSHIFT PRN IV AFTER MEDS AND BLOOD DRAWS; Start 04/10/21 at 11:00 Sodium Chloride 1,000 ml @ 65 mls/hr [id number] IV Last administered on 04/11/21at 19:56; Start 04/10/21 at 11:00 Ondansetron HCl (Zofran) 4 mg PRN Q4HRS PRN IV NAUSEA/VOMITING; Start 04/10/21 at 11:00 Acetaminophen (Tylenol) 650 mg PRN Q4HRS PRN PO TEMP OVER 100.4F OR MILD PAIN; Start 04/10/21 at 11:00 Al Hydroxide/Mg Hydroxide (Mylanta Plus Xs) 30 ml PRN DAILY PRN PO HEARTBURN / GAS; Start 04/10/21 at 11:00 Sodium Monofluorophosphate (Fleet Adult) 133 ml PRN DAILY PRN [place] CONSTIPATION; Start 04/10/21 at 11:00 Docusate Sodium (Colace) 100 mg PRN BID PRN PO HARD STOOLS; Start 04/10/21 at 11:00 Albuterol Sulfate (Ventolin Neb Soln) 2.5 mg PRN Q4HRS PRN NEB SHORTNESS OF BREATH; Start 04/10/21 at 11:00 Guaifenesin (Robitussin) 200 mg PRN Q4HRS PRN PO COUGH; Start 04/10/21 at 11:00 Enoxaparin Sodium (Lovenox 40mg Syringe) 40 mg Q24H SQ Last administered on 04/12/21at 08:52; Start 04/10/21 at 11:00 Insulin Human Lispro (HumaLOG) 0-5 UNITS TIDWMEALS SQ Last administered on 04/11/21at 18:27; Start 04/10/21 at 17:00 Dextrose (Dextrose 50%-Water Syringe) 12.5 gm PRN Q15MIN PRN IV SEE COMMENTS; Start 04/10/21 at 14:15 Amlodipine Besylate (Norvasc) 10 mg DAILY PO Last administered on 04/12/21 08:58; Start 04/11/21 at 09:00 Vitamin D (Vitamin D3) 1,000 unit DAILY PO Last administered on 04/12/21at 08:51; Start 04/11/21 at 09:00 Glipizide (Glucotrol) 5 mg BIDAC PO Last administered on 04/12/21 08:51; Start 04/10/21 at 17:30 Lisinopril (Prinivil) 5 mg DAILY PO Last administered on 04/12/21 08:58; Start 04/11/21 at 09:00 Linagliptin (Tradjenta) 5 mg DAILY PO Last administered on 04/12/21at 08:51; Start 04/11/21 at 09:00 Non-Formulary Medication (Info (No Known Medications Prior To Admisstion)) 1 each DAILY MC ; Start 04/11/21 at 09:00; Status UNV Latanoprost (Xalatan) 1 drop QHS OU Last administered on 04/11/21 19:56; Start 04/10/21 at 21:00 Metformin HCl (Glucophage) 1,000 mg BIDWMEALS PO Last administered on 04/12/21 08:51; Start 04/10/21 at 17:30 Atorvastatin Calcium (Lipitor) 5 mg DAILY PO Last administered on 04/12/21at 08:51; Start 04/11/21 at 09:00 Triamterene/HCTZ (Maxzide 37.5/ 25mg) 1 tab DAILY PO Last administered on 04/12at 08:58; Start 04/11/21 at 09:00 Active Scripts Active Reported Lisinopril 5 Mg Tablet 1 Tab PO DAILY Latanoprost 0.005% Eye Drop (Latanoprost/Pf) 7.5 Ml Drops 1 Drop OU QHS Pravastatin Sodium 10 Mg Tablet 1 Tab PO DAILY Metformin Hcl 1,000 Mg Tablet 1,000 Mg PO BIDWMEALS Triamterene-Hctz 37.5-25 Mg Cp (Triamterene/Hydrochlorothiazid) 1 Each Capsule 1 Cap PO DAILY Glipizide 5 Mg Tablet 1 Tab PO BID Vitamin D3 (Vitamin D) 25 Mcg Tablet 25 Mcg PO DAILY 1,000 UNITS = 25 MCG Amlodipine Besylate 10 Mg Tablet 10 Mg PO DAILY Nesina (Alogliptin Benzoate) 25 Mg Tablet 1 Tab PO DAILY 30 Days Vitals/I & O Vital Sign - Last 24 Hours 04/11/21 04/11/21 04/11/21 04/11/21 09:47 09:47 11:00 15:00 Temp 97.4 97.3 97.4 97.3 Pulse 53 53 63 63 Resp 16 16 B/P (MAP) 122/62 122/62 134/63 (86) 104/54 (71) Pulse Ox 96 97 O2 Delivery Room Air Room Air 04/11/21 04/11/21 04/12/21 04/12/21 20:00 23:10 02:40 06:45 Temp 98.7 97.8 97.9 98.7 97.8 97.9 Pulse 63 62 56 Resp 16 18 18 B/P (MAP) 105/54 (71) 132/64 (86) 97/55 (69) Pulse Ox 94 92 94 O2 Delivery Room Air Room Air Room Air Room Air 04/12/21 04/12/21 08:58 08:58 Pulse 80 80 Intake and Output 04/11/21 04/11/21 04/12/21 15:00 23:00 07:00 Intake Total 1000 ml 300 ml Output Total 200 ml 425 ml Balance -200 ml 1000 ml -125 ml Justicifation of Admission Dx: Justifications for Admission: Justification of Admission Dx: Yes CHF: Hemodynamic Instability Sepsis: Altered Mental Status DANTE BAH MD Apr 12, 2021 09:03
[2021-04-12 09:25] VITALS: BP 131/62
--- NOTE | 2021-04-12 10:14 | PDOC ---
CARDIO Progress Notes Date and Time Date of Service 04/12/2021 Time of Evaluation 1005 Vitals Vitals Vital Signs Date Time Temp Pulse Resp B/P (MAP) Pulse Ox O2 Delivery O2 Flow Rate FiO2 04/12/21 08:58 80 04/12/21 06:45 97.9 18 97/55 (69) 94 Room Air 97.9 Weight Weight [ ] Input and Output Intake and Output Intake and Output 04/12/21 07:00 Intake Total 1300 ml Output Total 625 ml Balance 675 ml Intake Oral 300 ml IV Total 1000 ml Output Urine Total 625 ml Laboratory Labs Laboratory Tests Test 04/11/21 11:39 04/11/21 16:35 04/11/21 21:07 04/12/21 04:00 Glucose (Fingerstick) 185 mg/dL (70-99) 207 mg/dL (70-99) 257 mg/dL (70-99) White Blood Count 6.6 x10^3/uL (4.0-11.0) Red Blood Count 3.07 x10^6/uL (4.30-5.70) Hemoglobin 10.4 g/dL (13.0-17.5) Hematocrit 29.9 % (39.0-53.0) Mean Corpuscular Volume 97 fL (79-100) Mean Corpuscular Hemoglobin 34 pg (25-35) Mean Corpuscular Hemoglobin Concent 35 g/dL (31-37) Red Cell Distribution Width 12.8 % (11.5-14.5) Platelet Count 153 x10^3/uL (140-400) Neutrophils (%) (Auto) 79 % (31-73) Lymphocytes (%) (Auto) 12 % (24-48) Monocytes (%) (Auto) 9 % (0-9) Eosinophils (%) (Auto) 0 % (0-3) Basophils (%) (Auto) 0 % (0-3) Neutrophils # (Auto) 5.2 x10^3/uL (1.8-7.7) Lymphocytes # (Auto) 0.8 x10^3/uL (1.0-4.8) Monocytes # (Auto) 0.6 x10^3/uL (0.0-1.1) Eosinophils # (Auto) 0.0 x10^3/uL (0.0-0.7) Basophils # (Auto) 0.0 x10^3/uL (0.0-0.2) Sodium Level 138 mmol/L (136-145) Potassium Level 3.7 mmol/L (3.5-5.1) Chloride Level 106 mmol/L (98-107) Carbon Dioxide Level 23 mmol/L (21-32) Anion Gap 9 (6-14) Blood Urea Nitrogen 22 mg/dL (8-26) Creatinine 0.9 mg/dL (0.7-1.3) Estimated GFR (Cockcroft-Gault) 79.5 Glucose Level 272 mg/dL (70-99) Calcium Level 8.6 mg/dL (8.5-10.1) Creatine Kinase 308 U/L (39-308) Test 04/12/21 07:38 Glucose (Fingerstick) 202 mg/dL (70-99) Microbiology Micro Microbiology 04/10/21 Blood Culture - Preliminary, Resulted NO GROWTH AFTER 1 DAY Physical Exam HEENT: Neck Supple W Full Motion Chest: Symmetric LUNGS: Other (diminished bases) Heart: RRR (SR), no gallops Abdomen: Soft N/T Extremities: No Calf Tenderness Neurology: alert, oriented, follow commands Assessment Assessment 1. Nontraumatic Mechanical fall; no syncopal spell 2. Arrhythmia; No AFIB but noted with SB lowest mid40s with long first degree AV block otherwise SR 3. Rhabdomyolysis 4. Diabetes, II 5. Moderate : noted via TTE with nml EF and WM Recommendations Continue secondary prevention measures No BB with noted bradycardia Will [facility] baby [facility] Consider SNU Justicifation of Admission Dx: Justifications for Admission: Justification of Admission Dx: Yes CHF: Hemodynamic Instability Sepsis: Altered Mental Status REJI ALARCON PULP MIXER Apr 12, 2021 10:14
[2021-04-12 11:00] VITALS: BP 113/57
[2021-04-12] MEDS ORDERED: ASPIRIN ENTERIC COATED 81 MG TABLET.DR. PO SCH (11:00)
--- NOTE | 2021-04-12 11:02 | PDOC3 ---
Discharge Summary Date of Admission: Apr 10, 2021 Date of Discharge: Apr 12, 2021 Follow-Up: 1-2 days Admitting Diagnosis comment: TE Prophylaxis Ordered VTE Prophylaxis Devices: No VTE Pharmacological Prophylaxi: Yes COMPLICATIONS NONE D/C CONDITION GOOD CONSULTS CARDIOLOGY PROCEDURES ECHO AORTIC VALVE The aortic valve is calcified and displays decreased opening. Doppler and Color Flow revealed no significant aortic regurgitation. Calculated aortic valve area is 1.27 cm2 with maximum pressure gradient of 20 mmHg and mean pressure gradient of 11 mmHg. Visually the patient has moderate aortic stenosis. MITRAL VALVE The mitral valve is normal in structure and function. There is no evidence of mitral valve prolapse. There is no mitral valve stenosis. Doppler and Color-flow revealed trace mitral regurgitation. TRICUSPID VALVE The tricuspid valve is normal in structure and function. Doppler and Color Flow revealed trace tricuspid regurgitation with an estimated PAP of 32 mmHg. There is no tricuspid valve stenosis. PULMONIC VALVE The pulmonic valve is not well visualized. Doppler and Color Flow revealed trace pulmonic valvular regurgitation. GREAT VESSELS The aortic root is normal in size. The SVC was not visualized. PERICARDIAL EFFUSION There is no evidence of significant pericardial effusion. Critical Notification Critical Value: No <Conclusion> The left ventricle is normal size. The left ventricular systolic function is normal and the ejection fraction is within normal range. The Ejection Fraction is estimated at 55%. The aortic valve is calcified and displays decreased opening. Doppler and Color Flow revealed no significant aortic regurgitation. Calculated aortic valve area is 1.27 cm2 with maximum pressure gradient of 20 mmHg and mean pressure gradient of 11 mmHg. Visually the patient has moderate aortic stenosis. Doppler and Color-flow revealed trace mitral regurgitation. Doppler and Color Flow revealed trace tricuspid regurgitation with an estimated PAP of 32 mmHg. Signed by : Abdon Partida MD Electronically Approved : 04/11/2021 17:31:49 DISCHARGE DX Assessment/Plan Impression: Fall Gait instability, inability to ambulate safely Arrhythmia; concerns for AFIB. Review of EKG's (3) show SR with PAC. No AFIB noted Rhabdomyolysis MODERATE AORTIC STENOSIS PLAN ADMITTED======== tele bed ECHO Cardiology consult PT/OT SNF BED NEEDED NEUROCHECKS Q 4 HRS D/C PLANNING 36 MIN Justifications for Admission Other Justification History of Present Illness History of Present Illness Identification/Chief Complaint Chief Complaint FALL IN YARD, UNABLE TO SELF AMBULATE History of Present Illness History of Present Illness 89 year old male who presented to ER with fall working in the yard and fell. , was unable to arise on his own strength did not lose consciousness or hit his head. He was laying outside all night long and all day 8- He has bilateral abrasions on his knees, and old pressure ulcer on lateral left ankle/ bilateral small abrasions on his hands and fingers. denies shortness of breath, chest pain, abdominal pain, nausea, vomiting, diarrhea, dizziness, headache, back pain, neck pain, fever, cough. hx COPD, diabetes, hypertension, high cholesterol, rotator cuff surgery, carpal tunnel surgery./ trauma work up c/w Negative CT C-spine for acute traumatic injury.//Hyperinflation suggesting COPD.A. fib on EKG IS new he is very wobbly and unstable on his feet.chronically PLAN tele bed ECHO Cardiology consult PT/OT SNF BED NEEDED ADMIT Past Medical History Past Medical History Past Medical History Past Medical History: Diabetes-Type II, High Cholesterol, Hypertension Past Surgical History: Other Additional Past Surgical Histo: knee, rotator cuff, carpal tunn. lung Smoking Status: Current Every Day Smoker Alcohol Use: Occasionally Drug Use: None fhx copd Cardiovascular: Hyperlipidemia Pulmonary: No pertinent hx GI: Constipation Musculoskeletal: Osteoarthritis Family History Family History: Hypertension Social History Smoke: No ALCOHOL: none Drugs: None Current Problem List Problem List Problems Medical Problems: (1) Fall Status: Acute (2) New onset a-fib Status: Acute (3) Unable to ambulate Status: Acute Current Medications Current Medications Current Medications Sodium Chloride 1,000 ml @ 1,000 mls/hr Q1H IV Last administered on 04/09/21at 16:30; Start 04/09/21 at 16:30; Stop 04/09/21 at 17:29; Status DC Diphtheria/ Tetanus/Acell Pertussis (ADACEL TDap SYRINGE) 0.5 ml ONCE ONCE VAX IM Last administered on 04/09/21at 16:30; Start 04/09/21 at 16:30; Stop 04/09/21 at 16:31; Status DC Neomycin/ Polymyxin/ Bacitracin (Triple Antibiotic Ointment) 1 pkt 1X ONCE TP Last administered on 04/09/21at 17:45; Start 04/09/21 at 17:45; Stop 04/09/21 at 17:46; Status DC Active Scripts Active Reported No Known Medications Prior To Admisstion (Info) Each 1 Each DAILY Allergies Allergies: Coded Allergies: No Known Drug Allergies (Unverified , 04/09/21) ROS Review of System Musculoskeletal: Denies back pain or + left lateral ankle joint pain. + Fall [] Integument: Denies rash. + Abrasions [] Neurologic: Denies headache, focal weakness or sensory changes. [] Endocrine: Denies polyuria or polydipsia. [] Lymphatic: Denies swollen glands. [] Psychiatric: Denies depression or anxiety. [] General: YES: Fatigue; No: Chills, Night Sweats, Malaise, Appetite, Other PSYCHOLOGICAL ROS: No: Anxiety, Behavioral Disorder, Concentration difficultie, Decreased libido, Depression, Disorientation, Hallucinations, Hostility, Irritablity, Memory difficulties, Mood Swings, Obsessive thoughts, Physical abuse, Sexual abuse, Sleep disturbances, Suicidal ideation, Other Eyes: Yes Decreased vision; No Blurry vision, No Double vision, No Dry eyes, No Excessive tearing, No Eye Pain, No Itchy Eyes, No Loss of vision, No Photophobia, No Scotomata, No Uses contacts, No Uses glasses, No Other HEENT: No: Heacaches, Visual Changes, Hearing change, Nasal congestion, Nasal discharge, Oral lesions, Sinus pain, Sore Throat, Epistaxis, Sneezing, Snoring, Tinnitus, Vertigo, Vocal changes, Other ALLERGY AND IMMUNOLOGY: No: Hives, Insect Bite Sensitivity, Itchy/Watery Eyes, Nasal Congestion, Post Nasal Drip, Seasonal Allergies, Other Hematological and Lymphatic: No: Bleeding Problems, Blood Clots, Blood Transfusions, Brusing, Night Sweats, Pallor, Swollen Lymph Nodes, Other ENDOCRINE: No: Breast Changes, Galactorrhea, Hair Pattern Changes, Hot Flashes, Malaise/lethargy, Mood Swings, Palpitations, Polydipsia/polyuria, Skin Changes, Temperature Intolerance, Unexpected Weight Changes, Other Breast: No New/Changing Breast Lumps, No Nipple changes, No Nipple discharge, No Other Respiratory: No: Cough, Hemoptysis, Orthopnea, Pleuritic Pain, Shortness of breath, SOB with excertion, Sputum Changes, Stridor, Tachypnea, Wheezing, Other Cardiovascular: No Chest Pain, No Palpitations, No Orthopnea, No Paroxysmal Noc. Dyspnea, No Edema, No Lt Headedness, No Other Gastrointestinal: No Nausea, No Vomiting, No Abdominal Pain, No Diarrhea, No Constipation, No Melena, No Hematochezia, No Other Genitourinary: No Dysuria, No Frequency, No Incontinence, No Hematuria, No Retention, No Discharge, No Urgency, No Pain, No Flank Pain, No Other, No , No , No , No , No , No , No Musculoskeletal: Yes Gait Disturbance, Yes Joint Stiffness, Yes Muscular Weakness; No Joint Pain, No Joint Swelling, No Muscle Pain, No Pain In:, No Swelling In:, No Other Neurological: Yes Gait Disturbance; No Behavorial Changes, No Bowel/Bladder ControlChng, No Confusion, No Dizziness, No Headaches, No Impaired Coord/balance, No Memory Loss, No Numbness/ Tingling, No Seizures, No Speech Problems, No Tremors, No Visual Changes, No Weakness, No Other Skin: Yes Dry Skin; No Eczema, No Hair Changes, No Lumps, No Mole Changes, No Mottling, No Nail Changes, No Pruritus, No Rash, No Skin Lesion Changes, No Other, No Acne 8-20 Fall Gait instability, inability to SAFELY ambulate Arrhythmia; concerns for AFIB. Review of EKG's (3) show SR with PAC. No AFIB noted Rhabdomyolysis Moderate : noted via TTE with nml EF and WM secondary prevention measures No BB with noted bradycardia defer MCOT to [facility] baby ECASA D/C TO PP D/C PLANNING 36 MIN Vitals Vitals Vital Signs Date Time Temp Pulse Resp B/P (MAP) Pulse Ox O2 Delivery O2 Flow Rate FiO2 04/12/21 08:58 80 04/12/21 06:45 97.9 18 97/55 (69) 94 Room Air 97.9 Physical Exam Physical Exam alert talking on phone to friend General: Alert, Oriented X3, Cooperative, No acute distress Heart: Regular rate, Normal S1, Other (irrr) Lungs: Clear Abdomen: Normal bowel sounds, Soft, No tenderness Extremities: No clubbing, No cyanosis, No edema Skin: No significant lesion FINAL DIAGNOSIS Problems Medical Problems: (1) Fall Status: Acute (2) New onset a-fib Status: Acute (3) Unable to ambulate Status: Acute Brief Hospital Course Mr. Jones is a 89 old [sex] who presented with [ FALL, WEAKNESS, RHABDOMYOLYSIS] CONDITION AT DISCHARGE: Improved Discharge Medications Current Medications Sodium Chloride 1,000 ml @ 1,000 mls/hr Q1H IV Last administered on 04/09/21at 16:30; Start 04/09/21 at 16:30; Stop 04/09/21 at 17:29; Status DC Diphtheria/ Tetanus/Acell Pertussis (ADACEL TDap SYRINGE) 0.5 ml ONCE ONCE VAX IM Last administered on 04/09/21at 16:30; Start 04/09/21 at 16:30; Stop 04/09/21 at 16:31; Status DC Neomycin/ Polymyxin/ Bacitracin (Triple Antibiotic Ointment) 1 pkt 1X ONCE TP Last administered on 04/09/21at 17:45; Start 04/09/21 at 17:45; Stop 04/09/21 at 17:46; Status DC Sodium Chloride (Normal Saline Flush) 3 ml QSHIFT PRN IV AFTER MEDS AND BLOOD DRAWS; Start 04/10/21 at 11:00 Sodium Chloride 1,000 ml @ 65 mls/hr [id number] IV Last administered on 04/11/21at 19:56; Start 04/10/21 at 11:00 Ondansetron HCl (Zofran) 4 mg PRN Q4HRS PRN IV NAUSEA/VOMITING; Start 04/10/21 at 11:00 Acetaminophen (Tylenol) 650 mg PRN Q4HRS PRN PO TEMP OVER 100.4F OR MILD PAIN; Start 04/10/21 at 11:00 Al Hydroxide/Mg Hydroxide (Mylanta Plus Xs) 30 ml PRN DAILY PRN PO HEARTBURN / GAS; Start 04/10/21 at 11:00 Sodium Monofluorophosphate (Fleet Adult) 133 ml PRN DAILY PRN CO CONSTIPATION; Start 04/10/21 at 11:00 Docusate Sodium (Colace) 100 mg PRN BID PRN PO HARD STOOLS; Start 04/10/21 at 11:00 Albuterol Sulfate (Ventolin Neb Soln) 2.5 mg PRN Q4HRS PRN NEB SHORTNESS OF BREATH; Start 04/10/21 at 11:00 Guaifenesin (Robitussin) 200 mg PRN Q4HRS PRN PO COUGH; Start 04/10/21 at 11:00 Enoxaparin Sodium (Lovenox 40mg Syringe) 40 mg Q24H SQ Last administered on 04/12/21at 08:52; Start 04/10/21 at 11:00 Insulin Human Lispro (HumaLOG) 0-5 UNITS TIDWMEALS SQ Last administered on 04/11/21at 18:27; Start 04/10/21 at 17:00 Dextrose (Dextrose 50%-Water Syringe) 12.5 gm PRN Q15MIN PRN IV SEE COMMENTS; Start 04/10/21 at 14:15 Amlodipine Besylate (Norvasc) 10 mg DAILY PO Last administered on 04/12/21at 08:58; Start 04/11/21 at 09:00 Vitamin D (Vitamin D3) 1,000 unit DAILY PO Last administered on 04/12/21at 08:51; Start 04/11/21 at 09:00 Glipizide (Glucotrol) 5 mg BIDAC PO Last administered on 04/12/21 08:51; Start 04/10/21 at 17:30 Lisinopril (Prinivil) 5 mg DAILY PO Last administered on 04/12/21at 08:58; Start 04/11/21 at 09:00 Linagliptin (Tradjenta) 5 mg DAILY PO Last administered on 04/12/21at 08:51; Start 04/11/21 at 09:00 Non-Formulary Medication (Info (No Known Medications Prior To Admisstion)) 1 each DAILY MC ; Start 04/11/21 at 09:00; Status UNV Latanoprost (Xalatan) 1 drop QHS OU Last administered on 04/11/21at 19:56; Start 04/10/21 at 21:00 Metformin HCl (Glucophage) 1,000 mg BIDWMEALS PO Last administered on 04/12/21at 08:51; Start 04/10/21 at 17:30 Atorvastatin Calcium (Lipitor) 5 mg DAILY PO Last administered on 04/12/21at 08:51; Start 04/11/21 at 09:00 Triamterene/HCTZ (Maxzide 37.5/ 25mg) 1 tab DAILY PO Last administered on 04/12/21at 08:58; Start 04/11/21 at 09:00 Aspirin (Ecotrin) 81 mg DAILYWBKFT PO ; Start 04/12/21 at 11:00 Active Scripts Active Reported Lisinopril 5 Mg Tablet 1 Tab PO DAILY Latanoprost 0.005% Eye Drop (Latanoprost/Pf) 7.5 Ml Drops 1 Drop OU QHS Pravastatin Sodium 10 Mg Tablet 1 Tab PO DAILY Metformin Hcl 1,000 Mg Tablet 1,000 Mg PO BIDWMEALS Triamterene-Hctz 37.5-25 Mg Cp (Triamterene/Hydrochlorothiazid) 1 Each Capsule 1 Cap PO DAILY Glipizide 5 Mg Tablet 1 Tab PO BID Vitamin D3 (Vitamin D) 25 Mcg Tablet 25 Mcg PO DAILY 1,000 UNITS = 25 MCG Amlodipine Besylate 10 Mg Tablet 10 Mg PO DAILY Nesina (Alogliptin Benzoate) 25 Mg Tablet 1 Tab PO DAILY 30 Days Vital Signs Vital Signs Date Time Temp Pulse Resp B/P (MAP) Pulse Ox O2 Delivery O2 Flow Rate FiO2 04/12/21 09:25 65 131/62 (85) 04/12/21 06:45 97.9 18 94 Room Air 97.9 Labs Laboratory Tests Test 04/10/21 18:54 04/11/21 04:50 04/11/21 07:23 04/11/21 11:39 Glucose (Fingerstick) 371 mg/dL (70-99) 104 mg/dL (70-99) 185 mg/dL (70-99) White Blood Count 7.1 x10^3/uL (4.0-11.0) Red Blood Count 3.11 x10^6/uL (4.30-5.70) Hemoglobin 10.2 g/dL (13.0-17.5) Hematocrit 29.8 % (39.0-53.0) Mean Corpuscular Volume 96 fL (79-100) Mean Corpuscular Hemoglobin 33 pg (25-35) Mean Corpuscular Hemoglobin Concent 34 g/dL (31-37) Red Cell Distribution Width 13.0 % (11.5-14.5) Platelet Count 159 x10^3/uL (140-400) Neutrophils (%) (Auto) 80 % (31-73) Lymphocytes (%) (Auto) 11 % (24-48) Monocytes (%) (Auto) 8 % (0-9) Eosinophils (%) (Auto) 0 % (0-3) Basophils (%) (Auto) 0 % (0-3) Neutrophils # (Auto) 5.6 x10^3/uL (1.8-7.7) Lymphocytes # (Auto) 0.8 x10^3/uL (1.0-4.8) Monocytes # (Auto) 0.6 x10^3/uL (0.0-1.1) Eosinophils # (Auto) 0.0 x10^3/uL (0.0-0.7) Basophils # (Auto) 0.0 x10^3/uL (0.0-0.2) Sodium Level 138 mmol/L (136-145) Potassium Level 3.8 mmol/L (3.5-5.1) Chloride Level 106 mmol/L (98-107) Carbon Dioxide Level 25 mmol/L (21-32) Anion Gap 7 (6-14) Blood Urea Nitrogen 23 mg/dL (8-26) Creatinine 0.8 mg/dL (0.7-1.3) Estimated GFR (Cockcroft-Gault) 91.0 BUN/Creatinine Ratio 29 (6-20) Glucose Level 124 mg/dL (70-99) Calcium Level 8.5 mg/dL (8.5-10.1) Total Bilirubin 0.3 mg/dL (0.2-1.0) Aspartate Amino Transf (AST/SGOT) 22 U/L (15-37) Alanine Aminotransferase (ALT/SGPT) 50 U/L (16-63) Alkaline Phosphatase 71 U/L (46-116) Creatine Kinase 539 U/L (39-308) Total Protein 5.0 g/dL (6.4-8.2) Albumin 2.7 g/dL (3.4-5.0) Albumin/Globulin Ratio 1.2 (1.0-1.7) Test 04/11/21 16:35 04/11/21 21:07 04/12/21 04:00 04/12/21 07:38 Glucose (Fingerstick) 207 mg/dL (70-99) 257 mg/dL (70-99) 202 mg/dL (70-99) White Blood Count 6.6 x10^3/uL (4.0-11.0) Red Blood Count 3.07 x10^6/uL (4.30-5.70) Hemoglobin 10.4 g/dL (13.0-17.5) Hematocrit 29.9 % (39.0-53.0) Mean Corpuscular Volume 97 fL (79-100) Mean Corpuscular Hemoglobin 34 pg (25-35) Mean Corpuscular Hemoglobin Concent 35 g/dL (31-37) Red Cell Distribution Width 12.8 % (11.5-14.5) Platelet Count 153 x10^3/uL (140-400) Neutrophils (%) (Auto) 79 % (31-73) Lymphocytes (%) (Auto) 12 % (24-48) Monocytes (%) (Auto) 9 % (0-9) Eosinophils (%) (Auto) 0 % (0-3) Basophils (%) (Auto) 0 % (0-3) Neutrophils # (Auto) 5.2 x10^3/uL (1.8-7.7) Lymphocytes # (Auto) 0.8 x10^3/uL (1.0-4.8) Monocytes # (Auto) 0.6 x10^3/uL (0.0-1.1) Eosinophils # (Auto) 0.0 x10^3/uL (0.0-0.7) Basophils # (Auto) 0.0 x10^3/uL (0.0-0.2) Sodium Level 138 mmol/L (136-145) Potassium Level 3.7 mmol/L (3.5-5.1) Chloride Level 106 mmol/L (98-107) Carbon Dioxide Level 23 mmol/L (21-32) Anion Gap 9 (6-14) Blood Urea Nitrogen 22 mg/dL (8-26) Creatinine 0.9 mg/dL (0.7-1.3) Estimated GFR (Cockcroft-Gault) 79.5 Glucose Level 272 mg/dL (70-99) Calcium Level 8.6 mg/dL (8.5-10.1) Creatine Kinase 308 U/L (39-308) Laboratory Tests Test 8/19/21 11:39 04/11/21 16:35 04/11/21 21:07 04/12/21 04:00 Glucose (Fingerstick) 185 mg/dL (70-99) 207 mg/dL (70-99) 257 mg/dL (70-99) White Blood Count 6.6 x10^3/uL (4.0-11.0) Red Blood Count 3.07 x10^6/uL (4.30-5.70) Hemoglobin 10.4 g/dL (13.0-17.5) Hematocrit 29.9 % (39.0-53.0) Mean Corpuscular Volume 97 fL (79-100) Mean Corpuscular Hemoglobin 34 pg (25-35) Mean Corpuscular Hemoglobin Concent 35 g/dL (31-37) Red Cell Distribution Width 12.8 % (11.5-14.5) Platelet Count 153 x10^3/uL (140-400) Neutrophils (%) (Auto) 79 % (31-73) Lymphocytes (%) (Auto) 12 % (24-48) Monocytes (%) (Auto) 9 % (0-9) Eosinophils (%) (Auto) 0 % (0-3) Basophils (%) (Auto) 0 % (0-3) Neutrophils # (Auto) 5.2 x10^3/uL (1.8-7.7) Lymphocytes # (Auto) 0.8 x10^3/uL (1.0-4.8) Monocytes # (Auto) 0.6 x10^3/uL (0.0-1.1) Eosinophils # (Auto) 0.0 x10^3/uL (0.0-0.7) Basophils # (Auto) 0.0 x10^3/uL (0.0-0.2) Sodium Level 138 mmol/L (136-145) Potassium Level 3.7 mmol/L (3.5-5.1) Chloride Level 106 mmol/L (98-107) Carbon Dioxide Level 23 mmol/L (21-32) Anion Gap 9 (6-14) Blood Urea Nitrogen 22 mg/dL (8-26) Creatinine 0.9 mg/dL (0.7-1.3) Estimated GFR (Cockcroft-Gault) 79.5 Glucose Level 272 mg/dL (70-99) Calcium Level 8.6 mg/dL (8.5-10.1) Creatine Kinase 308 U/L (39-308) Test 04/12/21 07:38 Glucose (Fingerstick) 202 mg/dL (70-99) Allergies Allergies Coded Allergies Type Severity Reaction Last Updated Verified No Known Drug Allergies 04/09/21 No Disposition/Orders: Other (D/C TO [facility] PP) Justicifation of Admission Dx: Justifications for Admission: Justification of Admission Dx: Yes CHF: Hemodynamic Instability Sepsis: Altered Mental Status DANTE BAH MD Apr 12, 2021 11:02
[2021-04-12] MEDS ORDERED: ACET325T21 PO (11:06)
[2021-04-12] MEDS ORDERED: ASPI-886 PO (11:06)
[2021-04-12] MEDS ORDERED: DOCU100C28 PO (11:06)
[2021-04-12] MEDS ORDERED: INSU100V35 SQ (11:06)
--- NOTE | 2021-04-12 11:07 | SNU/HH DC ---
DISCHARGE ORDERS DISCHARGE INFORMATION: DISCHARGE DATE: Apr 12, 2021 FINAL DIAGNOSIS Problems Medical Problems: (1) Fall Status: Acute (2) New onset a-fib Status: Acute (3) Unable to ambulate Status: Acute CONDITION ON DISCHARGE: Stable CODE STATUS: Code Status: Full HALFWAY: SNF STAY <30 DAYS: Yes HOSPICE: HOSPICE: No HOSPICE EVAL & TREAT: No LTAC: ADMIT TO LTAC: No POST DISCHARGE ORDERS: ACTIVITY ORDERS: Activity as tolerated WEIGHT BEARING STATUS: Partial weight bearing DIET AFTER DISCHARGE: ADA CHECKS AFTER DISCHARGE: CHECKS AFTER DISCHARGE: Check blood press - daily FOLLOW-UP: PHYSICIAN FOLLOW-UP: PCP AT [facility] TODAY TREATMENT/EQUIPMENT ORDERS: ADAPTIVE EQUIPMENT NEEDED: Front wheeled walker DISCHARGE MEDICATIONS: Home Meds Active Scripts Insulin Lispro (Admelog) 100 Unit/1 Ml Vial, 0 UNITS SQ TIDWMEALS for PER SS PROTOCOL for 30 Days, #2 EACH Prov:DANTE BAH MD 04/12/21 Docusate Sodium (DOCUSATE SODIUM) 100 Mg Capsule, 100 MG PO PRN BID PRN for HARD STOOLS for 30 Days, #60 CAP Prov:DANTE BAH MD 04/12/21 Acetaminophen (ACETAMINOPHEN) 325 Mg Tablet, 650 MG PO PRN Q4HRS PRN for TEMP OVER 100.4F OR MILD PAIN for 30 Days, #60 TAB Prov:DANTE BAH MD 04/12/21 Aspirin (ASPIRIN EC) 81 Mg Tablet.dr, 81 MG PO DAILYWBKFT for HEART HEALTH for 30 Days, #30 TAB.SR Prov:DANTE BAH MD 04/12/21 Reported Medications Lisinopril (LISINOPRIL) 5 Mg Tablet, 1 TAB PO DAILY for HTN, #30 TAB 5 Refills 04/10/21 Latanoprost/Pf (Latanoprost 0.005% Eye Drop) 7.5 Ml Drops, 1 DROP OU QHS for GLAUCOMA, DROP 04/10/21 Pravastatin Sodium (PRAVASTATIN SODIUM) 10 Mg Tablet, 1 TAB PO DAILY for high chol, #30 TAB 5 Refills 04/10/21 Metformin Hcl (METFORMIN HCL) 1,000 Mg Tablet, 1000 MG PO BIDWMEALS for DM, TAB 04/10/21 Triamterene/Hydrochlorothiazid (TRIAMTERENE-HCTZ 37.5-25 MG CP) 1 Each Capsule, 1 CAP PO DAILY for HTN, #30 CAP 5 Refills 04/10/21 Glipizide (GLIPIZIDE) 5 Mg Tablet, 1 TAB PO BID for DM, #60 TAB 3 Refills 04/10/21 Cholecalciferol (Vitamin D3) (Vitamin D3 ) 25 Mcg Tablet, 25 MCG PO DAILY for SUPPLEMENT, TAB 1,000 UNITS = 25 MCG 04/10/21 Amlodipine Besylate (AMLODIPINE BESYLATE) 10 Mg Tablet, 10 MG PO DAILY for htn, TAB 04/10/21 Alogliptin Benzoate (NESINA) 25 Mg Tablet, 1 TAB PO DAILY for DM for 30 Days, #30 TAB 0 Refills 04/10/21 DANTE BAH MD Apr 12, 2021 11:07
--- NOTE | 2021-04-12 11:36 | NUR ---
SS following up with discharge planning. SS reviewed pt chart and discussed with pt RN. Pt is currently on room air. COVID19 negative. PT/OT recommended longterm unit. Pt accepted at [facility], ; fax [phone]. Discharge orders received and phoned and faxed to [facility]. Pt will discharge today and go to [facility] at 1230 via [facility] transport, [id number]. Pt, pt's RN, and pt's family notified.
--- NOTE | 2021-04-12 12:51 | NUR ---
Discharge: Report called to Mariana at [facility]. IV removed without complications, catheter tip in-tact. All belongings with patient. Bilateral Hearing aides in ears at time of discharge. Patient assisted off of unit via wheelchair.
== END 2021-04-12 12:44 | DRG 558 ==
LOC: ER 15:49 → ED HOLD 17:53 → 6 SOUTH 23:43 → OBSVTOIN 04-10 10:55
PROVIDERS: ADMIT Family Medicine; ATTEND Family Medicine
DX: M62.82 Rhabdomyolysis (principal); I48.91 Unspecified atrial fibrillation; E11.9 Type 2 diabetes mellitus without complications; E78.00 Pure hypercholesterolemia, unspecified; E78.5 Hyperlipidemia, unspecified; I10 Essential (primary) hypertension; I44.0 Atrioventricular block, first degree; J44.9 Chronic obstructive pulmonary disease, unspecified; S80.211A Abrasion, right knee, initial encounter; S80.212A Abrasion, left knee, initial encounter; I49.9 Cardiac arrhythmia, unspecified; W01.0XXA Fall on same level from slipping, tripping and stumbling without subsequent striking against object, initial encounter; Y92.007 Garden or yard of unspecified non-institutional (private) residence as the place of occurrence of the external cause; Z82.49 Family history of ischemic heart disease and other diseases of the circulatory system; Z82.5 Family history of asthma and other chronic lower respiratory diseases; Z87.891 Personal history of nicotine dependence; M19.90 Unspecified osteoarthritis, unspecified site; I08.1 Rheumatic disorders of both mitral and tricuspid valves; Z20.822 Contact with and (suspected) exposure to COVID-19; I08.2 Rheumatic disorders of both aortic and tricuspid valves
CPT/HCPCS: 36415; 70450; 71045; 72125; 72128; 72131; 73521; 73610; 80048; 80053; 81001; 82550; 82962; 83690; 83735; 83880; 84484; 85007; 85025; 87040; 87426; 90471; 90715; 93005; 93306; 93880; 96360; G0378; G0379; J1650; J1815; J7030; U0003; U0005; 97530-GO; 97530-GP; 99285-25

== ENCOUNTER 2021-07-30 12:17 | Emergency (ER) | payer MEDICARE, OTHER ==
[~2021-07-30] VITALS: Ht 182.9 cm; Wt 72.7 kg
[~2021-07-30 12:17] MED LIST changes: +ACET325T21 PO; +ALOG25TA PO; +ASPI-886 PO; +CHOL10004 PO; +DOCU100C28 PO; +GLIP5TAB10 PO; +INSU100V35 SQ; +LATA7.5D OU; +LISI5TAB15 PO; +METF10007 PO; +PRAV10TA2 PO; +TRIA1CAP3 PO
[2021-07-30] MEDS ORDERED: ONDANSETRON PF 4 MG/2 ML VIAL. IVP ONE (13:15)
[2021-07-30] MEDS ORDERED: fentaNYL PF VIAL 100 MCG/2 ML VIAL IVP ONE (13:15)
[2021-07-30] MEDS ORDERED: IV NORMAL SALINE 1000ML BAG 1,000 ML IV ONE (13:15)
[2021-07-30 13:22] LABS: BASO % 1 % (0-3); EOS # 0.1 x10^3/uL (0.0-0.7); EOS % 1 % (0-3); HEMATOCRIT 32.4 % (39.0-53.0); HEMOGLOBIN 10.8 g/dL (13.0-17.5); LYMPH % 18 % (24-48); MEAN CORPUSCULAR HEMOGLOBIN 31 pg (25-35); MEAN CORPUSCULAR HGB CONC 33 g/dL (31-37); MEAN CORPUSCULAR VOLUME 94 fL (79-100); MONO # 0.5 x10^3/uL (0.0-1.1); MONO % 9 % (0-9); NEUT # 3.9 x10^3/uL (1.8-7.7); NEUT % 71 % (31-73); PLATELET COUNT 204 x10^3/uL (140-400); RED BLOOD COUNT 3.46 x10^6/uL (4.30-5.70); RED CELL DISTRIBUTION WIDTH 14.5 % (11.5-14.5); WHITE BLOOD COUNT 5.5 x10^3/uL (4.0-11.0)
[2021-07-30 13:25] LABS: CALCIUM 8.9 mg/dL (8.5-10.1); CREATININE 1.2 mg/dL (0.7-1.3); POTASSIUM 5.8 mmol/L (3.5-5.1)
--- NOTE | 2021-07-30 13:34 | PHYS DOC ---
Past Medical History Past Medical History: Diabetes-Type II, High Cholesterol, Hypertension Past Surgical History: Other Additional Past Surgical Histo: knee, rotator cuff, carpal tunn. lung Smoking Status: Former Smoker Additional Information: QUIT 3 MONTHS AGO Alcohol Use: Occasionally Drug Use: None General Adult EDM: Chief Complaint: HIP PAIN HPI: HPI: Patient is a 89 year old male who presents after a fall. Patient states he bent over to pick something up when he lost his balance and fell onto his left side. Patient thinks when he fell he may have hit his head as well. Denies loss of consciousness or blood thinners. Patient reports left-sided hip pain. Patient's foot is externally rotated. Pedal pulses are intact. Patient did not receive anything for pain prior to arrival. Review of Systems: Review of Systems: ROS At least 10 ROS systems have been reviewed and are negative except as documented in the HPI. General: Negative except as outlined in HPI above. Skin: Negative except as outlined in HPI above. HEENT: Negative except as outlined in HPI above. Neck: Negative except as outlined in HPI above. Respiratory: Negative except as outlined in HPI above.. Cardiovascular: Negative except as outlined in HPI above. Abdomen: Negative except as outlined in HPI above. : Negative except as outlined in HPI above. Back/MSK: Negative except as outlined in HPI above. Neuro: Negative except as outlined in HPI above. Psych: Negative except as outlined in HPI above. Heart Score: C/O Chest Pain: No Risk Factors: Risk Factors: DM, Current or recent (<one month) smoker, HTN, HLP, family history of CAD, obesity. Risk Scores: Score 0 - 3: 2.5% MACE over next 6 weeks - Discharge Home Score 4 - 6: 20.3% MACE over next 6 weeks - Admit for Clinical Observation Score 7 - 10: 72.7% MACE over next 6 weeks - Early Invasive Strategies Current Medications: Current Medications Medications (Trade) Dose Ordered Sig/Kenzie Start Time Stop Time Status Last Admin Dose Admin Fentanyl Citrate (Fentanyl 2ml Vial) 50 mcg 1X ONCE 07/30/21 13:15 07/30/21 13:16 DC 07/30/21 13:22 50 MCG Ondansetron HCl (Zofran) 4 mg 1X ONCE 07/30/21 13:15 07/30/21 13:16 DC 12/7/21 13:22 4 MG Sodium Chloride 1,000 ml @ 0 mls/hr 1X ONCE 07/30/21 13:15 07/30/21 13:16 DC Allergies: Allergies: Allergies Coded Allergies Type Severity Reaction Last Updated Verified No Known Drug Allergies 07/30/21 No Physical Exam: PE: Constitutional: Well developed, well nourished, no acute distress, non-toxic appearance. [] HENT: Normocephalic, atraumatic, bilateral external ears normal, oropharynx moist, no oral exudates, nose normal. [] Eyes: PERRLA, EOMI, conjunctiva normal, no discharge. [] Neck: Normal range of motion, no tenderness, supple, no stridor. [] Cardiovascular:Heart rate regular rhythm, no murmur [] Lungs & Thorax: Bilateral breath sounds clear to auscultation [] Abdomen: Bowel sounds normal, soft, no tenderness, no masses, no pulsatile masses. [] Skin: Warm, dry, no erythema, no rash. [] Back: No tenderness, no CVA tenderness. [] Extremities: No tenderness, no cyanosis, no clubbing, ROM intact, no edema. Left hippain to left hip, left foot externally rotated. Neurologic: Alert and oriented X 3, normal motor function, normal sensory function, no focal deficits noted. [] Psychologic: Affect normal, judgement normal, mood normal. [] Current Patient Data: Vital Signs: Vital Signs Date Time Temp Pulse Resp B/P (MAP) Pulse Ox O2 Delivery O2 Flow Rate FiO2 07/30/21 13:22 20 99 07/30/21 12:20 98.2 58 157/95 (115) Room Air 98.2 EKG: EKG: [] Radiology/Procedures: Radiology/Procedures: []EXAM: AP View of the chest DATE: 07/30/2021 1:18 PM INDICATION: Reason: FX HIP / Spl. Instructions: / History: COMPARISON: 04/09/2021 FINDINGS: The heart is not enlarged. Aortic calcifications are seen. Patchy opacities bilateral lung apices. No pleural effusion or pneumothorax. IMPRESSION: Patchy opacities bilateral lung apices, possibly atelectasis or developing consolidation. Electronically signed by: Dajuan Zavala MD (07/30/2021 2:16 PM) [facility]: AP pelvis, lateral view left DATE: 07/30/2021 1:08 PM INDICATION: Reason: fall, l hip pain / Spl. Instructions: / History: . COMPARISON: No Prior FINDINGS: 1. There is an intertrochanteric fracture of the left hip in varus angulation and mild associated foreshortening. An avulsion fracture at the base of the lesser trochanter is seen. 2. Trace cortical offset left superior pubic ramus suspicious for nondisplaced fracture. This can be further assessed by CT or MRI. 3. Diffusely decreased bone density. Electronically signed by: Dajuan Zavala MD (07/30/2021 2:15 PM) [facility] Course & Med Decision Making: Course & Med Decision Making Pertinent Labs and Imaging studies reviewed. (See chart for details) [] 89-year-old male presents after fall at home. Patient reporting left hip pain. Work-up in ER consists of left hip and pelvis, CT head and neck. Pain was treated in the emergency room. Patient still reporting pain 8/10. Patient given second dose of pain medication. Patient states he does not want to have surgery and is requesting hospice services. Patient's family was at bedside and was supportive of patient's decision. I spoke with Dr. Melvin who will be admitting patient for pain control for left hip fracture. rehabilitation services director will be consulted to aid with arrangements for hospice. Yessi Disclaimer: Yessi Disclaimer: This electronic medical record was generated, in whole or in part, using a voice recognition dictation system. Departure Departure Impression: Primary Impression: Hip fracture, left Qualified Codes: S72.002A - Fracture of unspecified part of neck of left femur, initial encounter for closed fracture Additional Impression: Fall Qualified Codes: W19.XXXA - Unspecified fall, initial encounter Disposition: ADMITTED INPATIENT Admitting Physician: HIMS Condition: STABLE Referrals: SUNG MARISCAL MD (PCP) CARLOS A VERDUZCO APRN Jul 30, 2021 13:34
[2021-07-30] MEDS ORDERED: MORPHINE SULFATE 4 MG/ML INJ. IVP ONE ×2 (14:00→16:45)
--- NOTE | 2021-07-30 14:17 | RAD ---
EXAM: AP pelvis, lateral view left DATE: 07/30/2021 1:08 PM INDICATION: Reason: fall, l hip pain / Spl. Instructions: / History: . COMPARISON: No Prior FINDINGS: 1. There is an intertrochanteric fracture of the left hip in varus angulation and mild associated fo reshortening. An avulsion fracture at the base of the lesser trochanter is seen. 2. Trace cortical offset left superior pubic ramus suspicious for nondisplaced fracture. This can be further assessed by CT or MRI. 3. Diffusely decreased bone density. Electronically signed by: Dajuan Zavala MD (07/30/2021 2:15 PM) [facility]
--- NOTE | 2021-07-30 14:19 | RAD ---
EXAM: AP View of the chest DATE: 07/30/2021 1:18 PM INDICATION: Reason: FX HIP / Spl. Instructions: / History: COMPARISON: 04/09/2021 FINDINGS: The heart is not enlarged. Aortic calcifications are seen. Patchy opacities bilateral lung apices. No pleural effusion or pneumothorax. IMPRESSION: Patchy opacities bilateral lung apices, possibly atelectasis or developing consolidation. Electronically signed by: Dajuan Zavala MD (07/30/2021 2:16 PM) [facility]
--- NOTE | 2021-07-30 14:32 | RAD ---
EXAM: CT HEAD WITHOUT IV CONTRAST CLINICAL HISTORY: Reason: fall / Spl. Instructions: / History: COMPARISON: None. TECHNIQUE: Routine CT of the head without contrast. Soft tissues and bone windows were reviewed. PQRS compliance statement - One or more of the following individualized dose reduction techniques wer e utilized for this study: 1. Automated exposure control 2. Adjustment of the mA and/or kV according to patient size 3. Use of iterative reconstruction technique FINDINGS: There is no evidence of hemorrhage, mass or extra-axial fluid collection. Felipe-white differentiation is maintained with no evidence of edema. Subcortical, periventricular as w ell as deep white matter foci of hypoattenuation likely changes of chronic small vessel disease. There is no mass effect or shift of the intracranial structures. The ventricles, basilar cisterns and cortical sulci are normal in size and configuration for the lilliana ents stated age. The cerebellum and brainstem are unremarkable. The calvarium demonstrates no evidence of fracture or focal lesion. There is normal aeration of the visualized paranasal sinuses and mastoid air cells. The visualized portions of the orbits are normal. Atherosclerotic calcifications of the intracranial internal carotid and vertebral arteries is seen. IMPRESSION: No evidence for acute intracranial process. Bilateral changes likely chronic small vessel disease. EXAM: CT CERVICAL SPINE WITHOUT IV CONTRAST CLINICAL HISTORY: Reason: fall / Spl. Instructions: / History: COMPARISON: 04/09/2020 TECHNIQUE: Helical CT of the cervical spine was performed. Axial, coronal and sagittal reformatted im ages were also performed. PQRS compliance statement - One or more of the following individualized dose reduction techniques wer e utilized for this study: 1. Automated exposure control 2. Adjustment of the mA and/or kV according to patient size 3. Use of iterative reconstruction technique FINDINGS: Vertebral body heights are preserved. Decreased bone mineral density. No spondylolisthesis. Moderate C5-6, C6-7 disc height loss. Trace height loss at T1, stable to 04/09/2021. Facet degenerativ e changes bilaterally. IMPRESSION: 1. No acute fracture or subluxation. 2. Multilevel degenerative changes of the cervical spine are seen Electronically signed by: Dajuan Zavala MD (07/30/2021 2:29 PM) [facility]
--- NOTE | 2021-07-30 16:28 | SNU/HH DC ---
DISCHARGE ORDERS DISCHARGE INFORMATION: DISCHARGE DATE: Jul 30, 2021 FINAL DIAGNOSIS Problems Medical Problems: (1) Fall Status: Acute (2) Hip fracture, left Status: Acute CONDITION ON DISCHARGE: Stable CODE STATUS: Code Status: DNR/DNI ALF: SNF STAY <30 DAYS: No HOSPICE: HOSPICE: Yes HOSPICE EVAL & TREAT: Yes LTAC: ADMIT TO LTAC: No POST DISCHARGE ORDERS: ACTIVITY ORDERS: Activity as tolerated WEIGHT BEARING STATUS: As tolerated DIET AFTER DISCHARGE: Regular CHECKS AFTER DISCHARGE: CHECKS AFTER DISCHARGE: Check blood press - daily TREATMENT/EQUIPMENT ORDERS: ADAPTIVE EQUIPMENT NEEDED: Front wheeled walker DISCHARGE MEDICATIONS: Home Meds Active Scripts Insulin Lispro (Admelog) 100 Unit/1 Ml Vial, 0 UNITS SQ TIDWMEALS for PER SS PROTOCOL for 30 Days, #2 EACH Prov:DANTE BAH MD 04/12/21 Docusate Sodium (DOCUSATE SODIUM) 100 Mg Capsule, 100 MG PO PRN BID PRN for HARD STOOLS for 30 Days, #60 CAP Prov:DANTE BAH MD 04/12/21 Acetaminophen (ACETAMINOPHEN) 325 Mg Tablet, 650 MG PO PRN Q4HRS PRN for TEMP OVER 100.4F OR MILD PAIN for 30 Days, #60 TAB Prov:DANTE BAH MD 04/12/21 Aspirin (ASPIRIN EC) 81 Mg Tablet.dr, 81 MG PO DAILYWBKFT for HEART HEALTH for 30 Days, #30 TAB.SR Prov:DANTE BAH MD 04/12/21 Reported Medications Lisinopril (LISINOPRIL) 5 Mg Tablet, 1 TAB PO DAILY for HTN, #30 TAB 5 Refills 04/10/21 Latanoprost/Pf (Latanoprost 0.005% Eye Drop) 7.5 Ml Drops, 1 DROP OU QHS for GLAUCOMA, DROP 04/10/21 Pravastatin Sodium (PRAVASTATIN SODIUM) 10 Mg Tablet, 1 TAB PO DAILY for high chol, #30 TAB 5 Refills 04/10/21 Metformin Hcl (METFORMIN HCL) 1,000 Mg Tablet, 1000 MG PO BIDWMEALS for DM, TAB 04/10/21 Triamterene/Hydrochlorothiazid (TRIAMTERENE-HCTZ 37.5-25 MG CP) 1 Each Capsule, 1 CAP PO DAILY for HTN, #30 CAP 5 Refills 04/10/21 Glipizide (GLIPIZIDE) 5 Mg Tablet, 1 TAB PO BID for DM, #60 TAB 3 Refills 04/10/21 Cholecalciferol (Vitamin D3) (Vitamin D3 ) 25 Mcg Tablet, 25 MCG PO DAILY for SUPPLEMENT, TAB 1,000 UNITS = 25 MCG 04/10/21 Amlodipine Besylate (AMLODIPINE BESYLATE) 10 Mg Tablet, 10 MG PO DAILY for htn, TAB 04/10/21 Alogliptin Benzoate (NESINA) 25 Mg Tablet, 1 TAB PO DAILY for DM for 30 Days, #30 TAB 0 Refills 04/10/21 AB MAYFIELD MD Jul 30, 2021 16:28
--- NOTE | 2021-07-30 16:35 | NUR ---
RAND following. Dr. Melvin contacted [facility] to advise pt came from [facility] and does not want surgery, wants to return to the facility with hospice. [facility] spoke with [facility], they are agreeable, hospice discharge orders faxed to [facility], they will notify ER of warehouse picker time. Nursing Economic Analysis Director aware. ER and [address] [place] [address] notified. Addendum: 07/30/21 at 1711 by CARLOS A GORDILLO Everything faxed to [facility] ([place], [place]). [facility] spoke with [facility], pt accepted back, HCR will arrange with [facility]. [facility]AND arranged transport with [facility] for [address]. Dr. Melvin notifying ER. Nursing Economic Analysis Director notified.
[2021-07-30 18:17] VITALS: BP 149/64
== END 2021-07-30 18:45 | disposition hospice, inpatient (51) ==
LOC: ER 12:17 → UNDOADMOB 14:29 → 5 NORTH 14:29 → ER 15:57 → UNDODISOB 18:45 → ER 18:45
DX: S72.002A Fracture of unspecified part of neck of left femur, initial encounter for closed fracture (principal); R51.9 Headache, unspecified; M54.2 Cervicalgia; E11.9 Type 2 diabetes mellitus without complications; I10 Essential (primary) hypertension; E78.00 Pure hypercholesterolemia, unspecified; Z87.891 Personal history of nicotine dependence; W18.39XA Other fall on same level, initial encounter; Y93.89 Activity, other specified; Y92.89 Other specified places as the place of occurrence of the external cause; Y99.8 Other external cause status
CPT/HCPCS: 36415; 70450; 71045; 72125; 73502; 80048; 85025; 96374; 96375; 96376; 99285; G0378; J2270; J2405; J3010; J7030; G0379